=== PATIENT | male | born 1995 | race Caucasian/White ===

== ENCOUNTER 2016-07-28 20:05 | Emergency (ER) | payer OTHER ==
[2016-07-28 20:27] VITALS: BP 137/80; PULSE 67; TEMP 98; BMI 25.4
--- NOTE | 2016-07-28 21:53 | PDOC ---
History of Present Illness - General Chief Complaint: Pain Stated Complaint: BACK PAIN Time Seen by Provider: 07/28/16 20:47 History Source: Patient Exam Limitations: No Limitations - History of Present Illness Initial Comments: 07/28/16 21:47 21yo Male patient presents to ED c/o sudden onset back pain while walking this afternoon. Patient states feeling pain while urinating and vomiting x 1 this evening after eating dinner around 6pm. No OTC medications taken. Associated nausea. Denies hematuria, rectal bleeding, abd pain, CP, diff breathing, rash or any other complaints at this time. Occurred: reports: this afternoon Severity: reports: moderate Pain Location: reports: back Method of Injury: No: unknown, assault, direct blow, fall, motor vehicle crash, other Modifying Factors: worse with: None, cold therapy, immobilization, pain medication, rest, other Past History - Travel Traveled outside of the country in the last 30 days: No Close contact w/someone who was outside of country & ill: No - Past Medical History Allergies/Adverse Reactions: Allergies Allergy/AdvReac Type Severity Reaction Status Date / Time No Known Allergies Allergy Verified 07/28/16 20:25 Home Medications: Ambulatory Orders NK [No Known Home Medication] 07/28/16 GI Disorders: Yes (GERD, COLITIS, CHRONIC DISCOMFORT) Psychiatric Problems: Yes (Anxiety) Suicide Attempt (Hx): No - Immunization History Immunization Up to Date: Yes (FLU 7460-8791) - Psycho/Social/Smoking Cessation Hx Anxiety: No Suicidal Ideation: No Smoking Status: No Smoking History: Never smoked Have you smoked in the past 12 months: No Number of Cigarettes Smoked Daily: 0 Cigars Per Day: 0 Information on smoking cessation initiated: No Hx Alcohol Use: No Drug/Substance Use Hx: No Substance Use Type: None Hx Substance Use Treatment: No Trauma Specific PMHX - Complaint Specific PMHX Arthritis: No Back Injury: No Neck Injury: No Hx Sacro Iliac Joint Dysfunction: No Review of Systems - Review of Systems Able to Perform ROS?: Yes Is the patient limited Kiswahili proficient: No Constitutional: No: Chills, Fever Respiratory: No: Cough, Shortness of Breath, Wheezing Cardiac (ROS): No: Chest Pain, Edema, Lightheadedness, Palpitations, Syncope, Chest Tightness ABD/GI: Yes: Nausea, Vomiting. No: Constipated, Diarrhea, Poor Appetite, Poor Fluid Intake, Rectal Bleeding, Abdominal cramping, Tarry Stools : Yes: Burning, Flank Pain. No: Dysuria, Discharge, Frequency, Hematuria, Pain, Urgency Musculoskeletal: Yes: Back Pain Integumentary: No: Erythema, Rash All Other Systems: Reviewed and Negative *Physical Exam - Vital Signs Last Vital Signs Temp Pulse Resp BP Pulse Ox 98.0 F 67 14 137/80 97 07/28/16 20:25 07/28/16 20:25 07/28/16 20:25 07/28/16 20:25 07/28/16 20:25 - Physical Exam General Appearance: Yes: Nourished, Appropriately Dressed. No: Apparent Distress, Mild Distress, Moderate Distress, Severe Distress Neck: positive: Trachea midline, Supple. negative: Decreased range of motion, Stridor, Lymphadenopathy (R), Lymphadenopathy (L) Respiratory/Chest: positive: Lungs Clear, Normal Breath Sounds. negative: Respiratory Distress, Accessory Muscle Use, Labored Respiration, Rapid RR Cardiovascular: positive: Regular Rhythm, Regular Rate. negative: Edema, JVD, Murmur Gastrointestinal/Abdominal: positive: Normal Bowel Sounds, Soft. negative: Distended, Guarding, Rebound, Tenderness Musculoskeletal: positive: Normal Inspection. negative: CVA Tenderness, Decreased Range of Motion, Vertebral Tenderness Extremity: positive: Normal Capillary Refill, Normal Inspection, Normal Range of Motion Integumentary: positive: Normal Color, Dry, Warm. negative: Erythema, Petechiae , Rash, Swelling Neurologic: positive: quirk sander II-XII NML intact, Fully Oriented, Alert, Normal Mood/ Affect, Normal Response, Motor Strength 5/5 Progress Note - Progress Note Progress Note: UA WNL. Patient reports this pain has been ongoing and is currently under that care of Chiropractor. Refused medications management at this time. *DC/Admit/Observation/Transfer Diagnosis at time of Disposition: Back pain Qualifiers: Back pain location: low back pain Chronicity: acute Back pain laterality: left Sciatica presence: without sciatica Qualified Code(s): M54.5 - Low back pain - Discharge Dispostion Disposition: HOME Condition at time of disposition: Stable Admit: No - Patient Instructions Printed Discharge Instructions: DI for Low Back Pain Additional Instructions: FOLLOW UP WITH YOUR PRIMARY CARE PROVIDER THIS WEEK FOR FURTHER EVALUATION. Print Language: INDONESIAN
[2016-07-28 22:33] LABS: URINE APPEARANCE CLEAR; URINE BILIRUBIN NEGATIVE (NEGATIVE); URINE BLOOD NEGATIVE (NEGATIVE); URINE COLOR COLORLESS; URINE GLUCOSE (UA) NEGATIVE (NEGATIVE); URINE KETONE NEGATIVE (NEGATIVE); URINE LEUK ESTERASE NEGATIVE (NEGATIVE); URINE NITRITE NEGATIVE (NEGATIVE); URINE PROTEIN NEGATIVE (NEGATIVE); URINE UROBILINOGEN NEGATIVE E.U./dl (0.2-1.0)
[2016-07-28] MEDS ORDERED: diazePAM 5 MG TABLET PO ONE (23:03)
[2016-07-28] MEDS ORDERED: IBUPROFEN 600 MG TABLET (FP) PO ONE ×2 (23:03→23:11)
[2016-07-28] MEDS ORDERED: diazePAM 5 MG TABLET ONE (23:12)
== END 2016-07-29 00:17 | disposition home or self-care (01) ==
LOC: JER 20:05
DX: M54.5 Low back pain (principal)
CPT/HCPCS: 81003; 99284-25

== ENCOUNTER 2016-08-07 18:01 | Emergency (ER) | payer OTHER ==
--- NOTE | 2016-08-07 18:07 | PDOC ---
Rapid Medical Evaluation Time Seen by Provider: 08/07/16 18:03 Medical Evaluation: Allergies Allergy/AdvReac Type Severity Reaction Status Date / Time No Known Allergies Allergy Verified 07/28/16 20:25 08/07/16 18:03 21 year old male with a history of GERD presenting with left flank pain since yesterday. Patient is unclear about whether he has had kidney stones before. Mild nausea. Has some "pressure" with urination. No fevers/chills. V/s unremarkable. Left CVA tenderness. No abdominal tenderness. -UA/culture -To Main ED for further evaluation
[2016-08-07 18:28] LABS: URINE APPEARANCE CLEAR; URINE BILIRUBIN NEGATIVE (NEGATIVE); URINE COLOR COLORLESS; URINE GLUCOSE (UA) NEGATIVE (NEGATIVE); URINE KETONE NEGATIVE (NEGATIVE); URINE LEUK ESTERASE NEGATIVE (NEGATIVE); URINE NITRITE NEGATIVE (NEGATIVE); URINE PROTEIN NEGATIVE (NEGATIVE); URINE UROBILINOGEN NEGATIVE E.U./dl (0.2-1.0)
[2016-08-07 18:29] LABS: URINE BLOOD 1+ (NEGATIVE)
[2016-08-07] MEDS ORDERED: KETOROLAC TROMETHAMINE 60 MG/2 ML VIAL IM ONE (19:02)
[2016-08-07] MEDS ORDERED: KETOROLAC TROMETHAMINE 60 MG/2 ML VIAL ONE (19:05)
[2016-08-07 19:57] LABS: URINE RBC 1 /hpf (0-3)
--- NOTE | 2016-08-07 20:24 | PDOC ---
History of Present Illness <Greta Paige - Last Filed: 08/07/16 20:24> - General History Source: Patient Exam Limitations: No Limitations - History of Present Illness Initial Comments: 08/07/16 20:26 Patient is a 21 year old male with significant past medical history of GERD, chronic intermittent abdominal pain and anxiety who presents to the ED with left flank pain and nausea since this week. Patient reports left flank pain sharp in nature and pressure to the left flank when he urinates. Patient denies hematuria. Patient reports colonoscopy and endoscopy did not show anything. He denies nausea, vomiting, diarrhea or constipation. He denies any dysuria, frequency, urgency or hematuria. He denies any heavy lifting. GI - Dr. El PCP - Dr. Kraus <Jazmin Umana - Last Filed: 08/07/16 20:30> - General Chief Complaint: Pain Stated Complaint: PAIN, ACUTE Time Seen by Provider: 08/07/16 18:03 Past History - Past Medical History GI Disorders: Yes (gerd) Psychiatric Problems: Yes (Anxiety) Suicide Attempt (Hx): No - Immunization History Immunization Up to Date: Yes (FLU [id number]) - Psycho/Social/Smoking Cessation Hx Anxiety: No Suicidal Ideation: No Smoking Status: No Smoking History: Never smoked Have you smoked in the past 12 months: No Number of Cigarettes Smoked Daily: 0 Cigars Per Day: 0 Information on smoking cessation initiated: No Hx Alcohol Use: No Drug/Substance Use Hx: No Substance Use Type: None Hx Substance Use Treatment: No <Greta Paige - Last Filed: 08/07/16 20:24> <Jazmin Umana - Last Filed: 08/07/16 20:30> - Past Medical History Allergies/Adverse Reactions: Allergies Allergy/AdvReac Type Severity Reaction Status Date / Time No Known Allergies Allergy Verified 07/28/16 20:25 Home Medications: Ambulatory Orders NK [No Known Home Medication] 07/28/16 Abd/GI Specific PMHX - Complaint Specific PMHX Colitis: No Diverticulitis: No Gall Bladder Disease: No GERD: Yes Hepatitis: No Irritable Bowel Synd (IBS): No Pancreatitis: No GI Ulcer Disease: No <Greta Paige - Last Filed: 08/07/16 20:24> Review of Systems - Review of Systems Able to Perform ROS?: Yes Comments:: 08/07/16 20:26 CONSTITUTIONAL: Absent: fever, chills, diaphoresis, generalized weakness, malaise, loss of appetite HEENT: Absent: rhinorrhea, nasal congestion, throat pain, throat swelling, difficulty swallowing, mouth swelling, ear pain, eye pain, visual Changes CARDIOVASCULAR: Absent: chest pain, syncope, palpitations, irregular heart rate, lightheadedness , peripheral edema RESPIRATORY: Absent: cough, shortness of breath, dyspnea with exertion, orthopnea, wheezing, stridor, hemoptysis GASTROINTESTINAL: Absent: abdominal pain, abdominal distension, nausea, vomiting, diarrhea, constipation, melena, hematochezia GENITOURINARY: Present: flank pain Absent: dysuria, frequency, urgency, hesitancy, hematuria, genital pain MUSCULOSKELETAL: Absent: myalgia, arthralgia, joint swelling SKIN: Absent: rash, itching, pallor HEMATOLOGIC/IMMUNOLOGIC: Absent: easy bleeding, easy bruising, lymphadenopathy, frequent infections ENDOCRINE: Absent: unexplained weight gain, unexplained weight loss, heat intolerance, cold intolerance NEUROLOGIC: Absent: headache, focal weakness or paresthesias, dizziness, unsteady gait, seizure, mental status changes, bladder or bowel incontinence PSYCHIATRIC: Absent: anxiety, depression, suicidal or homicidal ideation, hallucinations. <Jazmin Umana - Last Filed: 08/07/16 20:30> *Physical Exam - Vital Signs Last Vital Signs Temp Pulse Resp BP Pulse Ox 97.6 F 69 18 138/76 99 08/07/16 18:04 08/07/16 18:04 08/07/16 18:04 08/07/16 18:04 08/07/16 18:04 <Greta Paige - Last Filed: 08/07/16 20:24> - Vital Signs Last Vital Signs Temp Pulse Resp BP Pulse Ox 97.6 F 69 18 138/76 99 08/07/16 18:04 08/07/16 18:04 08/07/16 18:04 08/07/16 18:04 08/07/16 18:04 - Physical Exam Comments: 08/07/16 20:26 GENERAL: Well developed, well nourished. Awake and alert. No acute distress. HEENT: Normocephalic, atraumatic. PERRLA, EOMI. No conjunctival pallor. Sclera are non- icteric. Moist mucous membranes. Oropharynx is clear. NECK: Supple. Full ROM. No JVD. Carotid pulses 2+ and symmetric, without bruits. No thyromegaly. No lymphadenopathy. CARDIOVASCULAR: Regular rate and rhythm. No murmurs, rubs, or gallops. Distal pulses are 2+ and symmetric. PULMONARY: No evidence of respiratory distress. Lungs clear to auscultation bilaterally. No wheezing, rales or rhonchi. ABDOMINAL: Soft. Non-tender. Non-distended. No rebound or guarding. No organomegaly. Normoactive bowel sounds. MUSCULOSKELETAL +Mild left flank pain on percussion. Normal range of motion at all joints. No bony deformities or tenderness. EXTREMITIES: No cyanosis. No clubbing. No edema. No calf tenderness. SKIN: Warm and dry. Normal capillary refill. No rashes. No jaundice. NEUROLOGICAL: Alert, awake, appropriate. Cranial nerves 2-12 intact. No deficits to light touch and temperature in face, upper extremities and lower extremities. No motor deficits in the in face, upper extremities and lower extremities. Normoreflexic in the upper and lower extremities. Normal speech. PSYCHIATRIC: Cooperative. Good eye contact. Appropriate mood and affect. <Jazmin Umana - Last Filed: 08/07/16 20:30> ED Treatment Course - ADDITIONAL ORDERS Additional order review: Laboratory Results 08/07/16 18:15 Urine Color Colorless Urine Appearance Clear Urine pH 6.0 Ur Specific [place] 1.002 Urine Protein Negative Urine Glucose (UA) Negative Urine Ketones Negative Urine Blood 1+ H Urine Nitrite Negative Urine Bilirubin Negative Urine Urobilinogen Negative Ur Leukocyte Esterase Negative Urine RBC 1 Urine WBC None Ur Epithelial Cells Rare - RADIOLOGY Radiology Studies Ordered: Category Date Time Status KIDNEY / RENAL US [US] Stat Ultrasound 08/07/16 19:03 Completed - Medications Given in the ED: ED Medications Discontinued Medications Generic Name Dose Route Start Last Admin Trade Name Freq PRN Reason Stop Dose Admin Ketorolac Tromethamine 60 mg 08/07/16 19:02 08/07/16 19:14 Toradol Injection - IM 08/07/16 19:03 60 mg ONCE ONE Administration <Greta Paige - Last Filed: 08/07/16 20:24> - ADDITIONAL ORDERS Additional order review: Laboratory Results 08/07/16 18:15 Urine Color Colorless Urine Appearance Clear Urine pH 6.0 Ur Specific [place] 1.002 Urine Protein Negative Urine Glucose (UA) Negative Urine Ketones Negative Urine Blood 1+ H Urine Nitrite Negative Urine Bilirubin Negative Urine Urobilinogen Negative Ur Leukocyte Esterase Negative Urine RBC 1 Urine WBC None Ur Epithelial Cells Rare - RADIOLOGY Radiology Studies Ordered: 08/07/16 20:29 EXAM: US/KIDNEY / RENAL US Renal ultrasound Clinical information: left flank pain There is no evidence of hydronephrosis. The kidneys appear unremarkable in position, echogenicity, cortical thickness and size. Each kidney measures approximately 10.7 cm in length. There is no obvious mass lesion or calculus. No perirenal fluid collection is identified. The ureters cannot be visualized due to obscuring bowel gas. Impression: Negative exam. No sonographic abnormality is identified. Reported By: Adama Razo MD - Medications Given in the ED: ED Medications Discontinued Medications Generic Name Dose Route Start Last Admin Trade Name Freq PRN Reason Stop Dose Admin Ketorolac Tromethamine 60 mg 08/07/16 19:02 08/07/16 19:14 Toradol Injection - IM 08/07/16 19:03 60 mg ONCE ONE Administration <Jazmin Umana - Last Filed: 08/07/16 20:30> *DC/Admit/Observation/Transfer <Greta Paige - Last Filed: 08/07/16 20:24> - Attestations Scribe Attestion: 08/07/16 20:27 Documentation prepared by DIDI Ward, acting as ophthalmic medical technician for Greta Paige MD. <Jazmin Umana - Last Filed: 08/07/16 20:30> Diagnosis at time of Disposition: Acute flank pain - Discharge Dispostion Disposition: HOME Condition at time of disposition: Stable - Referrals Referrals: Naresh Blum MD [Primary Care Provider] - - Patient Instructions Printed Discharge Instructions: DI for Flank Pain Additional Instructions: please take ibuprofen or tylenol for pain followup with your regular physician
[2016-08-07 20:38] VITALS: BP 107/86; PULSE 74; TEMP 98.7
== END 2016-08-07 20:38 | disposition home or self-care (01) ==
LOC: JER 18:01
PROC: 3E0233Z Introduction of Anti-inflammatory into Muscle, Percutaneous Approach (ICD-10-PCS; principal; 2016-08-07)
DX: R10.32 Left lower quadrant pain (principal); K21.9 Gastro-esophageal reflux disease without esophagitis
CPT/HCPCS: 76775-TC; 81003; 81015; 87086; 99282-25

== ENCOUNTER 2016-08-08 23:46 | Emergency (ER) | payer OTHER ==
[2016-08-09 00:28] VITALS: BP 128/69; PULSE 82; TEMP 97.9; BMI 28.3
--- NOTE | 2016-08-09 00:49 | PDOC ---
History of Present Illness - General History Source: Patient Exam Limitations: No Limitations - History of Present Illness Initial Comments: 08/09/16 00:57 The patient is a 21 year old male with significant past medical history of GERD , chronic intermittent abdominal pain, anxiety, and frequent visits to the ER who presents to the ED with persistent left flank pain. Patient was seen here on 08/07 for left flank pain and nausea, where he had an extensive workup including a renal ultrasound that reveal no acute pathology. He was treated and discharge. Patient returns today for left flank pain. He states upon urinating, he experiences left flank pain and dysuria. No hematuria, urgency, or frequency. The patient denies fever, chills, cough, SOB, chest pain, and palpitations. The patient denies abdominal pain, nausea, vomiting, and diarrhea. Allergies: NKDA Social History: No alcohol, tobacco, or drug use reported. Past Surgical History: None reported PCP: Dr. Naresh Blum GI: Dr. Simon El <Christi Hebert - Last Filed: 08/09/16 00:57> - General History Source: Patient <Jose MariaSalty kilpatrick - Last Filed: 08/09/16 02:35> - General Chief Complaint: Shortness of Breath Stated Complaint: Shortness of Breath Time Seen by Provider: 08/09/16 00:49 Past History <Christi Hebert - Last Filed: 08/09/16 00:57> - Past Medical History GI Disorders: Yes (gerd) Psychiatric Problems: Yes (Anxiety) Suicide Attempt (Hx): No - Immunization History Immunization Up to Date: Yes (FLU 4301-6423) - Psycho/Social/Smoking Cessation Hx Anxiety: No Suicidal Ideation: No Smoking Status: No Smoking History: Never smoked Have you smoked in the past 12 months: No Number of Cigarettes Smoked Daily: 0 Cigars Per Day: 0 Information on smoking cessation initiated: No Hx Alcohol Use: No Drug/Substance Use Hx: No Substance Use Type: None Hx Substance Use Treatment: No <Salty Parada - Last Filed: 08/09/16 02:35> - Past Medical History Allergies/Adverse Reactions: Allergies Allergy/AdvReac Type Severity Reaction Status Date / Time No Known Allergies Allergy Verified 08/09/16 00:20 Home Medications: Ambulatory Orders NK [No Known Home Medication] 07/28/16 Review of Systems - Review of Systems Able to Perform ROS?: Yes Comments:: 08/09/16 00:57 CONSTITUTIONAL: Absent: fever, no chills, no fatigue EYES: Absent: visual changes ENT: Absent: ear pain, no sore throat CARDIOVASCULAR: Absent: chest pain, no palpitations RESPIRATORY: Absent: cough, no SOB GI: Absent: abdominal pain, no nausea, no vomiting, no constipation, no diarrhea GENITOURINARY: +dysuria, left flank pain Absent: no frequency, no hematuria MUSCULOSKELETAL: Absent: no arthralgia, no myalgia SKIN: Absent: rash NEURO: Absent: headache <Christi Hebert - Last Filed: 08/09/16 00:57> *Physical Exam - Vital Signs Last Vital Signs Temp Pulse Resp BP Pulse Ox 97.9 F 82 20 128/69 99 08/09/16 00:20 08/09/16 00:20 08/09/16 00:20 08/09/16 00:20 08/09/16 00:20 - Physical Exam Comments: 08/09/16 00:58 GENERAL: Well-appearing, well-nourished. No apparent distress. HEENT: Normocephalic, atraumatic. PERRL, EOM intact. CARDIOVASCULAR: Normal S1, S2. Regular rate and rhythm. PULMONARY: Clear to auscultation bilaterally. ABDOMEN: Soft, non-distended, non-tender. MUSCULOSKELETAL Normal range of motion at all joints. Mild left CVA tenderness. EXTREMITIES: Normal ROM in all four extremities. No gross deformities. SKIN: Warm, dry. No rash NEUROLOGICAL: No focal neurological deficits. <Christi Hebert - Last Filed: 08/09/16 00:57> - Vital Signs Last Vital Signs Temp Pulse Resp BP Pulse Ox 97.9 F 82 20 128/69 99 08/09/16 00:20 08/09/16 00:20 08/09/16 00:20 08/09/16 00:20 08/09/16 00:20 <Salty Parada - Last Filed: 08/09/16 02:35> Medical Decision Making - Medical Decision Making 08/09/16 02:34 Dr. Parada: The scribe's documentation has been prepared under my direction and personally reviewed by me in its entirery. I confirm that the note above accurately reflects all work, treatment, procedures, and medical decision making performed by me. Pt refused CT scan.. States he feels better. Will discharge <Salty Parada - Last Filed: 08/09/16 02:35> *DC/Admit/Observation/Transfer - Attestations Scribe Attestion: 08/09/16 00:58 Documentation prepared by Christi Hebert, acting as medical device assembler for Salty Parada MD <Christi Hebert - Last Filed: 08/09/16 00:57> - Discharge Dispostion Admit: No <Salty Parada - Last Filed: 08/09/16 02:35> Diagnosis at time of Disposition: Shortness of breath - Discharge Dispostion Disposition: HOME Condition at time of disposition: Stable - Referrals Referrals: Naresh Blum MD [Primary Care Provider] - - Patient Instructions Printed Discharge Instructions: DI for Shortness of Breath
== END 2016-08-09 02:40 | disposition home or self-care (01) ==
LOC: JER 23:46
DX: R06.02 Shortness of breath (principal); F41.9 Anxiety disorder, unspecified; K21.9 Gastro-esophageal reflux disease without esophagitis
CPT/HCPCS: 99281-25

== ENCOUNTER 2016-08-11 23:00 | Emergency (ER) | payer OTHER ==
[2016-08-11 23:17] VITALS: BP 117/71; PULSE 84; TEMP 98.4; BMI 27.2
--- NOTE | 2016-08-12 00:14 | PDOC ---
History of Present Illness - General History Source: Patient Exam Limitations: No Limitations - History of Present Illness Initial Comments: 08/12/16 00:52 The patient is a 21 year old male, with a significant past medical history of GERD, chronic intermittent abdominal pain, anxiety, and frequent visits to the ER, who presents to the emergency department complaining of left flank pain since earlier this evening. Patient was seen here on 08/07 and 08/09 for left flank pain and nausea, during which he had an extensive workup including a renal US which revealed no acute pathology. The patient returns today for left flank pain. The patient describes is pain as a renal colic and as if something were traveling down his back. He states this pain has been going on for about 2 years, but his pain has been worsening. Today, he rates the pain a 9/10. He reports pressure when urinating, but denies hematuria, frequency, or urgency. The patient denies any fever, chills, cough, headache, or dizziness. The patient denies any nausea, vomiting, diarrhea, or constipation. The patient denies any recent travel or sick contacts. Allergies: None reported. Past Surgical History: None reported. Social History: Non-smoker. Denies alcohol or drug use. PCP: Dr. Blum Automobile Contract Clerk: Dr. El <Emma Reed - Last Filed: 08/12/16 00:52> - General History Source: Patient Exam Limitations: No Limitations <Xiomara Julian - Last Filed: 08/14/16 08:39> - General Chief Complaint: Pain, Acute Stated Complaint: FLANK PAIN Time Seen by Provider: 08/12/16 00:03 Past History <Emma Reed - Last Filed: 08/12/16 00:52> - Past Medical History GI Disorders: Yes (gerd) Psychiatric Problems: Yes (Anxiety) Suicide Attempt (Hx): No - Immunization History Immunization Up to Date: Yes (FLU 9003-8399) - Psycho/Social/Smoking Cessation Hx Anxiety: No Suicidal Ideation: No Smoking Status: No Smoking History: Never smoked Have you smoked in the past 12 months: No Number of Cigarettes Smoked Daily: 0 Cigars Per Day: 0 Hx Alcohol Use: No Drug/Substance Use Hx: No Substance Use Type: None Hx Substance Use Treatment: No <Xiomara Julian - Last Filed: 08/14/16 08:39> - Past Medical History Allergies/Adverse Reactions: Allergies Allergy/AdvReac Type Severity Reaction Status Date / Time No Known Allergies Allergy Verified 08/11/16 23:17 Home Medications: Ambulatory Orders Methocarbamol [Robaxin -] 500 mg PO BID PRN #14 tablet 08/12/16 Review of Systems - Review of Systems Able to Perform ROS?: Yes Comments:: 08/12/16 00:53 GENERAL/CONSTITUTIONAL: No: fever, chills, weakness, loss of appetite. HEAD, EYES, EARS, NOSE AND THROAT: No: change in vision, ear pain, discharge, sore throat, throat swelling. CARDIOVASCULAR: No: chest pain, lightheadedness, palpitations, syncope RESPIRATORY: No: cough, shortness of breath, wheezing, hemoptysis, stridor. GASTROINTESTINAL: No: nausea, vomiting, abdominal cramping, diarrhea, rectal bleeding, constipation. GENITOURINARY: Yes: +left flank pain, +renal colic, +pressure when urinating. No : hematuria, frequency, urgency. MUSCULOSKELETAL: No: back pain, neck pain, joint pain, muscle swelling or pain SKIN AND BREASTS: No: lesions, pallor, rash or easy bruising. NEUROLOGIC: No: headache, vertigo, paresthesias, weakness ENDOCRINE: No: unexplained weight gain or loss HEMATOLOGIC/LYMPHATIC: No: anemia, easy bleeding, swelling nodes <Reed,Giomilsy - Last Filed: 08/12/16 00:52> *Physical Exam - Vital Signs Last Vital Signs Temp Pulse Resp BP Pulse Ox 98.4 F 84 18 117/71 98 08/11/16 23:14 08/11/16 23:14 08/11/16 23:14 08/11/16 23:14 08/11/16 23:14 - Physical Exam Comments: 08/12/16 00:53 GENERAL: The patient is in no acute distress. HEAD: Normal with no signs of trauma. EYES: PERRLA, EOMI, sclera anicteric, conjunctiva clear. ENT: Ears normal, nares patent, oropharynx clear without exudates. Moist mucous membranes. NECK: Normal range of motion, supple without lymphadenopathy, JVD, or masses. LUNGS: Breath sounds equal, clear to auscultation bilaterally. No wheezes, and no crackles. HEART: Regular rate and rhythm, normal S1 and S2 without murmur, rub or gallop. ABDOMEN: Soft, nontender, normoactive bowel sounds. No guarding, no rebound. EXTREMITIES: Normal range of motion, no edema. No clubbing or cyanosis. No erythema, or tenderness. NEUROLOGICAL: Cranial nerves II through XII grossly intact. Normal speech. No focal neurological deficits. MUSCULOSKELETAL: Back non-tender to palpation, Mild left CVA tenderness SKIN: Warm, Dry, normal turgor, no rashes or lesions noted. <Emma Reed - Last Filed: 08/12/16 00:52> - Vital Signs Last Vital Signs Temp Pulse Resp BP Pulse Ox 98.4 F 84 18 117/71 98 08/11/16 23:14 08/11/16 23:14 08/11/16 23:14 08/11/16 23:14 08/11/16 23:14 <Xiomara Julian - Last Filed: 08/14/16 08:39> ED Treatment Course - ADDITIONAL ORDERS Additional order review: Laboratory Results 08/12/16 00:25 Urine Color Colorless Urine Appearance Clear Urine pH 7.0 Ur Specific Spring 1.002 Urine Protein Negative Urine Glucose (UA) Negative Urine Ketones Negative Urine Blood Negative Urine Nitrite Negative Urine Bilirubin Negative Urine Urobilinogen Negative Ur Leukocyte Esterase Negative <Emma Reed - Last Filed: 08/12/16 00:52> Medical Decision Making - Medical Decision Making 08/12/16 00:14 A portion of this note was documented by scribe services under my direction. I have reviewed the details of the note, within reason, and agree with the documentation with the following case summary and management plan written by me. Nursing documentation reviewed and incorporated into medical decision making 08/12/16 00:54 Baldemar is a 21 yo M with a history of anxiety multiple emergency room visits secondary to chronic abdominal/flank pain Pt specifically states that he "Feels like he is passing something", like I have "Renal colic" Pt reports pain in the left flank Per chart review, he has previously been seen by urology, gastroenterology, nephrology, neurology and has not gotten a diagnosis Pt denies hematuria, dysuria Pt denies trauma 08/12/16 01:[address] here was 2 years ago (is it possible that there is a stone that was missed on his US because there was no significant hydro) Will plan to do UA and Spiral CT Will give Toradol Pt will be discharged to home I have reviewed this patient's imaging studies with him He believes he possibly passed a stone already I have explained that his Urinalysis is normal I have asked this patient to follow up with his PMD in 2 days He has previously seen a Urologist, I have asked him to follow up with Uro Finally, pt appears anxious about his pain I have recommended that he contact Dr. Kraus for a referral to psychologist /psychiatrist... Clinical impression: Left flank pain <Xiomara Julian - Last Filed: 08/14/16 08:39> *DC/Admit/Observation/Transfer - Attestations Scribe Attestion: 08/12/16 00:53 Documentation prepared by Emma Reed, acting as medical secretary teacher for Xiomara Julian MD. <Emma Reed - Last Filed: 08/12/16 00:52> - Discharge Dispostion Admit: No <Xiomara Julian - Last Filed: 08/14/16 08:39> Diagnosis at time of Disposition: Abdominal wall pain in left flank - Discharge Dispostion Disposition: HOME Condition at time of disposition: Improved - Prescriptions Prescriptions: Methocarbamol [Robaxin -] 500 mg PO BID PRN #14 tablet PRN Reason: flank pain - Referrals Referrals: Naresh Blum MD [Primary Care Provider] - - Patient Instructions Printed Discharge Instructions: DI for Flank Pain Additional Instructions: Return to the emergency department immediately with ANY new, persistent or worsening symptoms. Continue any medications as previously prescribed by your physician. You should follow up with your primary doctor as soon as possible regarding today's emergency department visit. . Please make sure your doctor reviews the results of your emergency evaluation. Thank you for coming to the Emergency Department today for your care. It was a pleasure to see you today. Please note that your evaluation is INCOMPLETE until you follow-up with your doctor.
[2016-08-12 00:37] LABS: URINE APPEARANCE CLEAR; URINE BILIRUBIN NEGATIVE (NEGATIVE); URINE BLOOD NEGATIVE (NEGATIVE); URINE COLOR COLORLESS; URINE GLUCOSE (UA) NEGATIVE (NEGATIVE); URINE KETONE NEGATIVE (NEGATIVE); URINE LEUK ESTERASE NEGATIVE (NEGATIVE); URINE NITRITE NEGATIVE (NEGATIVE); URINE PROTEIN NEGATIVE (NEGATIVE); URINE UROBILINOGEN NEGATIVE E.U./dl (0.2-1.0)
[2016-08-12] MEDS ORDERED: KETOROLAC TROMETHAMINE 30 MG/1 ML VIAL IM ONE (00:54)
[2016-08-12] MEDS ORDERED: KETOROLAC TROMETHAMINE 60 MG/2 ML VIAL ONE (01:13)
== END 2016-08-12 01:58 | disposition home or self-care (01) ==
LOC: JER 23:00
PROC: 3E0233Z Introduction of Anti-inflammatory into Muscle, Percutaneous Approach (ICD-10-PCS; principal; 2016-08-11)
DX: R10.32 Left lower quadrant pain (principal)
CPT/HCPCS: 74176; 81003; 87086; 99283-25

== ENCOUNTER → 2016-08-14 | Emergency (ER) | payer OTHER ==
[~2016-08-14] MED LIST: ACETAMINOPHEN 325 MG TABLET (FP) ONE; IBUPROFEN 600 MG TABLET (FP) PO ONE; MAG HYDROX/AL HYDROX/SIMETH 30 ML UNIT-DOSE CUP ONE; METHOCARBAMOL 500 MG TABLET ONE; METHOCARBAMOL 500 MG TABLET PO ONE; RANITIDINE HCL 150 MG TABLET (FP) ONE
[2016-08-14 01:16] VITALS: BP 120/80; PULSE 78; TEMP 98.4; BMI 27.8
--- NOTE | 2016-08-14 01:26 | PDOC ---
History of Present Illness - General History Source: Patient Exam Limitations: No Limitations - History of Present Illness Initial Comments: 08/14/16 01:36 Patient is a 21 year old male with a significant past medical history of GERD, chronic intermittent abdominal pain, anxiety, and frequent visits to the ER for same complaint who presents to the ED with flank pain and dysuria. Patient notes that his left flank radiates to his back. Patient was seen on 08/07, 08/08, 08/11 with the same complaint. Patient had abdominal CT on 08/11 visit that was negative. Also the bloodwork was within normal limits during all of the visits. Patient had an US on 08/07 that was within normal limits. Patient had a physical with Dr. Blum who referred him to urologist follow up. He denies nausea, vomiting, diarrhea or constipation. He denies any dysuria, frequency, urgency or hematuria. He denies any heavy lifting. Allergies: None reported. Past Surgical History: None reported. Social History: Non-smoker. Denies alcohol or drug use. PCP: Dr. Blum Oracle Applications Developer: Dr. El <Jazmin Umana - Last Filed: 08/14/16 01:35> <Greta Paige - Last Filed: 08/14/16 01:47> - General Chief Complaint: Pain, Acute Stated Complaint: ABD PAIN Time Seen by Provider: 08/14/16 01:19 Past History <Jazmin Umana - Last Filed: 08/14/16 01:35> - Past Medical History GI Disorders: Yes (gerd) Psychiatric Problems: Yes (Anxiety) Suicide Attempt (Hx): No - Immunization History Immunization Up to Date: Yes (FLU 2812-4554) - Psycho/Social/Smoking Cessation Hx Anxiety: No Suicidal Ideation: No Smoking Status: No Smoking History: Never smoked Have you smoked in the past 12 months: No Number of Cigarettes Smoked Daily: 0 Cigars Per Day: 0 Hx Alcohol Use: No Drug/Substance Use Hx: No Substance Use Type: None Hx Substance Use Treatment: No <Greta Paige - Last Filed: 08/14/16 01:47> - Past Medical History Allergies/Adverse Reactions: Allergies Allergy/AdvReac Type Severity Reaction Status Date / Time No Known Allergies Allergy Verified 08/11/16 23:17 Home Medications: Ambulatory Orders Methocarbamol [Robaxin -] 500 mg PO BID PRN #14 tablet 08/12/16 Abd/GI Specific PMHX - Complaint Specific PMHX Colitis: No Diverticulitis: No Gall Bladder Disease: No GERD: Yes Hepatitis: No Irritable Bowel Synd (IBS): No Pancreatitis: No GI Ulcer Disease: No <RoyalGreta Kristen - Last Filed: 08/14/16 01:47> Review of Systems - Review of Systems Able to Perform ROS?: Yes Comments:: 08/14/16 01:36 CONSTITUTIONAL: Absent: fever, chills, diaphoresis, generalized weakness, malaise, loss of appetite HEENT: Absent: rhinorrhea, nasal congestion, throat pain, throat swelling, difficulty swallowing, mouth swelling, ear pain, eye pain, visual Changes CARDIOVASCULAR: Absent: chest pain, syncope, palpitations, irregular heart rate, lightheadedness , peripheral edema RESPIRATORY: Absent: cough, shortness of breath, dyspnea with exertion, orthopnea, wheezing, stridor, hemoptysis GASTROINTESTINAL: Absent: abdominal pain, abdominal distension, nausea, vomiting, diarrhea, constipation, melena, hematochezia GENITOURINARY: Present: flank pain, dysuria Absent: frequency, urgency, hesitancy, hematuria, genital pain MUSCULOSKELETAL: Absent: myalgia, arthralgia, joint swelling SKIN: Absent: rash, itching, pallor HEMATOLOGIC/IMMUNOLOGIC: Absent: easy bleeding, easy bruising, lymphadenopathy, frequent infections ENDOCRINE: Absent: unexplained weight gain, unexplained weight loss, heat intolerance, cold intolerance NEUROLOGIC: Absent: headache, focal weakness or paresthesias, dizziness, unsteady gait, seizure, mental status changes, bladder or bowel incontinence PSYCHIATRIC: Absent: anxiety, depression, suicidal or homicidal ideation, hallucinations. <Jazmin Umana - Last Filed: 08/14/16 01:35> *Physical Exam - Vital Signs Last Vital Signs Temp Pulse Resp BP Pulse Ox 98.4 F 78 16 120/80 98 08/14/16 01:15 08/14/16 01:15 08/14/16 01:15 08/14/16 01:15 08/14/16 01:15 - Physical Exam Comments: 08/14/16 01:37 GENERAL: Well developed, well nourished. Awake and alert. No acute distress. HEENT: Normocephalic, atraumatic. PERRLA, EOMI. No conjunctival pallor. Sclera are non- icteric. Moist mucous membranes. Oropharynx is clear. NECK: Supple. Full ROM. No JVD. Carotid pulses 2+ and symmetric, without bruits. No thyromegaly. No lymphadenopathy. CARDIOVASCULAR: Regular rate and rhythm. No murmurs, rubs, or gallops. Distal pulses are 2+ and symmetric. PULMONARY: No evidence of respiratory distress. Lungs clear to auscultation bilaterally. No wheezing, rales or rhonchi. ABDOMINAL: Soft. Non-tender. Non-distended. No rebound or guarding. No organomegaly. Normoactive bowel sounds. MUSCULOSKELETAL Normal range of motion at all joints. No bony deformities or tenderness. No CVA tenderness. EXTREMITIES: No cyanosis. No clubbing. No edema. No calf tenderness. SKIN: Warm and dry. Normal capillary refill. No rashes. No jaundice. NEUROLOGICAL: Alert, awake, appropriate. Cranial nerves 2-12 intact. No deficits to light touch and temperature in face, upper extremities and lower extremities. No motor deficits in the in face, upper extremities and lower extremities. Normoreflexic in the upper and lower extremities. Normal speech. Toes are down-going bilaterally. Gait is normal without ataxia. PSYCHIATRIC: Cooperative. Good eye contact. Appropriate mood and affect. <Jazmin Umana - Last Filed: 08/14/16 01:35> - Vital Signs Last Vital Signs Temp Pulse Resp BP Pulse Ox 98.4 F 78 16 120/80 98 08/14/16 01:15 08/14/16 01:15 08/14/16 01:15 08/14/16 01:15 08/14/16 01:15 <Greta Paige - Last Filed: 08/14/16 01:47> *DC/Admit/Observation/Transfer - Attestations Scribe Attestion: 08/14/16 01:38 Documentation prepared by DIDI Ward, acting as medical billing assistant for Greta Paige MD. <Jazmin Umana - Last Filed: 08/14/16 01:35> <Greta Paige - Last Filed: 08/14/16 01:47> Diagnosis at time of Disposition: Abdominal wall pain in left flank - Discharge Dispostion Disposition: HOME Condition at time of disposition: Stable - Referrals Referrals: Naresh Blum MD [Primary Care Provider] - - Patient Instructions Printed Discharge Instructions: DI for Musculoskeletal Pain, DI for Flank Pain Additional Instructions: please take motrin or aleve for pain followup with your physician
== END | disposition home or self-care (01) ==
LOC: JER 00:08
DX: R10.32 Left lower quadrant pain (principal); K21.9 Gastro-esophageal reflux disease without esophagitis; F41.9 Anxiety disorder, unspecified
CPT/HCPCS: 99281-25

== ENCOUNTER 2016-08-18 21:03 | Emergency (ER) | payer OTHER ==
[2016-08-18 21:16] VITALS: PULSE 111; BMI 27.1
--- NOTE | 2016-08-18 21:42 | PDOC ---
[id number] No Limitations - History of Present Illness Initial Comments: 08/18/16 22:11 Patient is a 21 year old male with a significant past medical history of GERD, anxiety, who presents to the ED with gas since this evening. Patient reports eating carrots, eggs, and beans earlier in the day. Denies fever, chills, nausea , vomiting, diarrhea, constipation. His last BM was yesterday. Patient also complains of a pinch in his lower back. He states that he exercises at the gym regularly. 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 Past Surgical History: None reported. Social History: Non-smoker. Denies alcohol or drug use. PCP: Dr. Blum Applications Architect: Dr. El <Gold Desai - Last Filed: 08/18/16 22:11> <Marleni Cervantes - Last Filed: 08/25/16 20:49> - General Chief Complaint: Back Pain Stated Complaint: BAD BACK PAIN Time Seen by Provider: 08/18/16 21:41 Past History <Gold Desai - Last Filed: 08/18/16 22:11> - Past Medical History GI Disorders: Yes (gerd) Psychiatric Problems: Yes (Anxiety) Suicide Attempt (Hx): No - Immunization History Immunization Up to Date: Yes (FLU 8899-2334) - Psycho/Social/Smoking Cessation Hx Anxiety: No Suicidal Ideation: No Smoking Status: No Smoking History: Never smoked Have you smoked in the past 12 months: No Number of Cigarettes Smoked Daily: 0 Cigars Per Day: 0 Hx Alcohol Use: No Drug/Substance Use Hx: No Substance Use Type: None Hx Substance Use Treatment: No <Marleni Cervantes - Last Filed: 08/25/16 20:49> - Past Medical History Allergies/Adverse Reactions: Allergies Allergy/AdvReac Type Severity Reaction Status Date / Time No Known Allergies Allergy Verified 08/18/16 21:16 Home Medications: Ambulatory Orders NK [No Known Home Medication] 08/18/16 Review of Systems - Review of Systems Able to Perform ROS?: Yes Comments:: 08/18/16 22:11 GENERAL/CONSTITUTIONAL: No fever or chills. No weakness. HEAD, EYES, EARS, NOSE AND THROAT: No change in vision. No ear pain or discharge. No sore throat. CARDIOVASCULAR: No chest pain or shortness of breath. RESPIRATORY: No cough, wheezing, or hemoptysis. GASTROINTESTINAL: + gassy. No nausea, vomiting, diarrhea or constipation. GENITOURINARY: No dysuria, frequency, or change in urination. MUSCULOSKELETAL: + lower back pain. No joint or muscle swelling or pain. No neck pain. SKIN: No rash NEUROLOGIC: No headache, vertigo, loss of consciousness, or change in strength/ sensation. ENDOCRINE: No increased thirst. No abnormal weight change. HEMATOLOGIC/LYMPHATIC: No anemia, easy bleeding, or history of blood clots. ALLERGIC/IMMUNOLOGIC: No hives or skin allergy. <Gold Desai - Last Filed: 08/18/16 22:11> *Physical Exam - Vital Signs Last Vital Signs Temp Pulse Resp BP Pulse Ox 97.4 F L 111 H 20 147/91 99 08/18/16 21:13 08/18/16 21:13 08/18/16 21:13 08/18/16 21:13 08/18/16 21:13 - Physical Exam Comments: 08/18/16 22:12 GENERAL: Awake, alert, and fully oriented, in no acute distress HEAD: No signs of trauma EYES: PERRLA, EOMI, sclera anicteric, conjunctiva clear ENT: Auricles normal inspection, hearing grossly normal, nares patent, oropharynx clear without exudates. Moist mucosa NECK: Normal ROM, supple, no lymphadenopathy, JVD, or masses LUNGS: Breath sounds equal, clear to auscultation bilaterally. No wheezes, and no crackles HEART: Regular rate and rhythm, normal S1 and S2, no murmurs, rubs or gallops ABDOMEN: Soft, nontender, normoactive bowel sounds. No guarding, no rebound. No masses EXTREMITIES: Normal range of motion, no edema. No clubbing or cyanosis. No cords, erythema, or tenderness NEUROLOGICAL: Cranial nerves II through XII grossly intact. Normal speech, normal gait SKIN: Warm, Dry, normal turgor, no rashes or lesions noted. <Gold Desai - Last Filed: 08/18/16 22:11> - Vital Signs Last Vital Signs Temp Pulse Resp BP Pulse Ox 97.4 F L 111 H 20 147/91 99 08/18/16 21:13 08/18/16 21:13 08/18/16 21:13 08/18/16 21:13 08/18/16 21:13 <Marleni Cervantes - Last Filed: 08/25/16 20:49> ED Treatment Course - LABORATORY CBC & Chemistry Diagram: 08/18/16 22:10 08/18/16 22:10 <Marleni Cervantes - Last Filed: 08/25/16 20:49> Medical Decision Making - Medical Decision Making 08/25/16 20:46 Pt comes with chest pain/epigastric pain; GERD pain. He has no cardiac risk factors. I will not check cardiac enyzmes. Pt's labs are normal. He also complains of back pain. T spine imaging is normal; Pt treated with pain meds. Stable for discharge home. <Marleni Cervantes - Last Filed: 08/25/16 20:49> *DC/Admit/Observation/Transfer - Attestations Scribe Attestion: 08/18/16 22:13 Documentation prepared by Gold Desai, acting as medical education specialist for Marleni Cervantes MD. <oGld Desai - Last Filed: 08/18/16 22:11> - Discharge Dispostion Admit: No <Marleni Cervantes - Last Filed: 08/25/16 20:49> Diagnosis at time of Disposition: Muscular chest pain - Discharge Dispostion Disposition: HOME Condition at time of disposition: Stable - Referrals Referrals: Naresh Blum MD [Primary Care Provider] - - Patient Instructions Printed Discharge Instructions: DI for Back Strain or Sprain - Post Discharge Activity Work/School Note: Back to Work
[2016-08-18] MEDS ORDERED: MAG HYDROX/AL HYDROX/SIMETH 30 ML UNIT-DOSE CUP PO ONE (22:05)
[2016-08-18] MEDS ORDERED: KETOROLAC TROMETHAMINE 60 MG/2 ML VIAL IM ONE (22:05)
[2016-08-18 22:21] LABS: BASOPHIL 0.5 % (0-2.0); EOSINOPHIL 3.9 % (0-4.5); MCH 28.8 pg (25.7-33.7); MEAN CELL VOLUME 82.3 fl (80-96); MEAN PLT VOLUME 10.2 fl (7.5-11.1); NEUTROPHILS 66.7 % (42.8-82.8); PLATELET COUNT 172 K/MM3 (134-434); RDW 13.7 % (11.9-15.9); WHITE BLOOD COUNT 5.7 K/mm3 (4.0-10.0)
[2016-08-18 22:51] LABS: ALBUMIN 4.2 g/dl (3.4-5.0); ALK PHOS 101 U/L (45-117); ANION GAP 9 (8-16); BILIRUBIN,TOTAL 0.5 mg/dL (0.2-1.0); CALCIUM 8.9 mg/dL (8.5-10.1); CO2 28 mmol/L (21-32); CREATININE 0.8 mg/dL (0.7-1.3); GLUCOSE,RANDOM 101 mg/dL (74-106); SGOT/AST 12 U/L (15-37); SGPT/ALT 19 U/L (12-78); TOT PROT 7.6 g/dl (6.4-8.2)
[2016-08-18] MEDS ORDERED: KETOROLAC TROMETHAMINE 60 MG/2 ML VIAL ONE (23:11)
[2016-08-18] MEDS ORDERED: MAG HYDROX/AL HYDROX/SIMETH 30 ML UNIT-DOSE CUP ONE (23:12)
[2016-08-18 23:27] VITALS: BP 140/88; TEMP 97.5
== END 2016-08-18 23:29 | disposition home or self-care (01) ==
LOC: JER 21:03
PROC: 3E0233Z Introduction of Anti-inflammatory into Muscle, Percutaneous Approach (ICD-10-PCS; principal; 2016-08-18)
DX: R07.9 Chest pain, unspecified (principal)
CPT/HCPCS: 36415; 72070-TC; 80053; 85025; 99281-25

== ENCOUNTER 2016-08-30 21:08 | Emergency (ER) | payer OTHER ==
[2016-08-30 21:18] VITALS: BP 131/71; PULSE 80; TEMP 98.7; BMI 23.8
[2016-08-30] MEDS ORDERED: KETOROLAC TROMETHAMINE 60 MG/2 ML VIAL ONE (22:37)
[2016-08-30] MEDS: KETOROLAC TROMETHAMINE 60 MG/2 ML VIAL IM ONE (22:47)
--- NOTE | 2016-08-30 22:50 | PDOC ---
History of Present Illness - General Chief Complaint: Back Pain Stated Complaint: LOWER BACK PAIN Time Seen by Provider: 08/30/16 22:21 History Source: Patient Exam Limitations: No Limitations - History of Present Illness Initial Comments: CHIEF COMPLAINT: 21 y/o afebrile male c/o left sided low back pain that started today while stretching. HISTORY OF PRESENT ILLNESS: He states he was stretching before a run and felt a twinge in his left low back. He states it's been hurting ever since and feels like a "pulling" with certain movements. He denies fall, midline low back pain, saddle anesthesia, bowel/bladder incontinence, numbness/tingling in lower extremities. Vital signs on arrival are within normal limits. REVIEW OF SYSTEMS: GENERAL/CONSTITUTIONAL: No fever/chills. No weakness. No weight change. HEAD, EYES, EARS, NOSE AND THROAT: No change in vision. No ear pain or discharge. No sore throat. MUSCULOSKELETAL: No joint or muscle swelling or pain. No neck. +left low back pain SKIN: No rash or easy bruising. NEUROLOGIC: No headache, vertigo, loss of consciousness, or loss of sensation. PHYSICAL EXAM: GENERAL: The patient is awake, alert, and fully oriented, in no acute distress. he is well appearing and ambulatory. HEAD: Normal with no signs of trauma. BACK: No midline lumbar spine TTP or step offs. TTP of left lumbar paravertebral muscles at L2-L3. Reproduction of pain with lateral movement of lumbar spine to the right. EXTREMITIES: Normal range of motion, no edema. NEUROLOGICAL: Normal speech, normal gait. CN II-XII grossly intact. No saddle anesthesia. PSYCH: Normal mood, normal affect. SKIN: Warm, dry, normal turgor, no rashes or lesions noted. Past History - Past Medical History Allergies/Adverse Reactions: Allergies Allergy/AdvReac Type Severity Reaction Status Date / Time No Known Allergies Allergy Verified 08/30/16 21:12 Home Medications: Ambulatory Orders NK [No Known Home Medication] 08/18/16 GI Disorders: Yes (gerd) Psychiatric Problems: Yes (Anxiety) Suicide Attempt (Hx): No - Immunization History Immunization Up to Date: Yes (FLU 1508-6660) - Psycho/Social/Smoking Cessation Hx Anxiety: No Suicidal Ideation: No Smoking Status: No Smoking History: Never smoked Have you smoked in the past 12 months: No Number of Cigarettes Smoked Daily: 0 Cigars Per Day: 0 Information on smoking cessation initiated: No Hx Alcohol Use: No Drug/Substance Use Hx: No Substance Use Type: None Hx Substance Use Treatment: No Trauma Specific PMHX - Complaint Specific PMHX Arthritis: No Back Injury: No Neck Injury: No Hx Sacro Iliac Joint Dysfunction: No *Physical Exam - Vital Signs Last Vital Signs Temp Pulse Resp BP Pulse Ox 98.7 F 80 14 131/71 97 08/30/16 21:13 08/30/16 21:13 08/30/16 21:13 08/30/16 21:13 08/30/16 21:13 Medical Decision Making - Medical Decision Making A/P: 21 y/o afebrile male with right low back strain. He has not taken any pain medication at home. Plan is to give IM toradol and discharge to home. Suggested he stretch his back multiple times per day and take 600mg of Motrin every 6 hours for pain. Pt also instructed to apply heating pad to the affected area, f/u with his PCP and return to the ER with any worsening or concerning symptoms. The patient verbalizes understanding of all instructions, has no further questions and is awaiting discharge. *DC/Admit/Observation/Transfer Diagnosis at time of Disposition: Low back strain Qualifiers: Encounter type: initial encounter Qualified Code(s): S39.012A - Strain of muscle, fascia and tendon of lower back, initial encounter - Referrals Referrals: Naresh Blum MD [Primary Care Provider] - - Patient Instructions Printed Discharge Instructions: DI for Low Back Pain Additional Instructions: Discharge Instructions: -Take 600mg of Motrin with food for pain every 6 hours -Stretch your back multiple times per day -Apply heat to the affected area -Follow up with Dr. Blum within 1 week -Return to the ER wtih any worsening or concerning symptoms.
== END 2016-08-30 22:51 | disposition home or self-care (01) ==
LOC: JERFT 21:08
PROC: 3E0233Z Introduction of Anti-inflammatory into Muscle, Percutaneous Approach (ICD-10-PCS; principal; 2016-08-30)
DX: S39.012A Strain of muscle, fascia and tendon of lower back, initial encounter (principal); X50.0XXA Overexertion from strenuous movement or load, initial encounter; Y93.89 Activity, other specified; Y92.89 Other specified places as the place of occurrence of the external cause
CPT/HCPCS: 99281-25

== ENCOUNTER 2016-08-31 14:00 | Emergency (ER) | payer OTHER ==
[2016-08-31 14:09] VITALS: BP 127/63; PULSE 82; TEMP 98.3; BMI 24.2
--- NOTE | 2016-08-31 14:58 | PDOC ---
History of Present Illness - General Chief Complaint: Back Pain Stated Complaint: LOWER BACK PAIN Time Seen by Provider: 08/31/16 14:48 History Source: Patient Exam Limitations: No Limitations - History of Present Illness Initial Comments: 08/31/16 15:08 My Chief Complaint: left lower back pain History of Present Illness: Pt. is a 21 year old male with history of GERD here today complaining of left lower muscle pain with spasm of muscle worse today. Pt. was here yesterday was told to take ibuprofen as needed for back pain however patient did not take any. Patient also reports that he's had intermittent lower back pain for one month and had seen his primary care provider Dr. Kraus and has an MRI of lumbar spine ordered for later today. 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 He reports that he does not turn his body in the direction that he is picking up a book. The midline vertebral pain radiation of pain down the legs or numbness of groin or legs. The pain currently as a 6 out of 10 with muscle tightness of left lower back. Occurred: reports: yesterday Severity: reports: moderate Pain Location: reports: back (left lower back pain with muscle spasm ) Method of Injury: Yes: unknown Modifying Factors: improves with: immobilization Loss of Consciousness: no loss of consciousness Associated Symptoms (Fall): muscle spasms (left lumbar paraspinal ) Past History - Past Medical History Allergies/Adverse Reactions: Allergies Allergy/AdvReac Type Severity Reaction Status Date / Time No Known Allergies Allergy Verified 08/31/16 14:06 Home Medications: Ambulatory Orders Cyclobenzaprine HCl [Flexeril 10 mg] 10 mg PO Q8H PRN #20 tablet 08/31/16 GI Disorders: Yes (gerd) Psychiatric Problems: Yes (Anxiety) Suicide Attempt (Hx): No - Immunization History Immunization Up to Date: Yes (FLU 2364-7673) - Psycho/Social/Smoking Cessation Hx Anxiety: No Suicidal Ideation: No Smoking Status: No Smoking History: Never smoked Have you smoked in the past 12 months: No Number of Cigarettes Smoked Daily: 0 Cigars Per Day: 0 Information on smoking cessation initiated: No Hx Alcohol Use: No Drug/Substance Use Hx: No Substance Use Type: None Hx Substance Use Treatment: No Trauma Specific PMHX - Complaint Specific PMHX Arthritis: No Back Injury: No Neck Injury: No Hx Sacro Iliac Joint Dysfunction: No Review of Systems - Review of Systems Able to Perform ROS?: Yes Constitutional: No: Symptoms Reported HEENTM: No: Symptoms Reported Respiratory: No: Symptoms reported Cardiac (ROS): No: Symptoms Reported ABD/GI: No: Symptoms Reported : No: Symptoms Reported Musculoskeletal: Yes: Muscle Pain (left lumbar paraspinal muscle pain with spasm of muscle ) Integumentary: No: Symptoms Reported Neurological: No: Symptoms reported *Physical Exam - Vital Signs Last Vital Signs Temp Pulse Resp BP Pulse Ox 98.3 F 82 17 127/63 98 08/31/16 14:06 08/31/16 14:06 08/31/16 14:06 08/31/16 14:06 08/31/16 14:06 - Physical Exam General Appearance: Yes: Appropriately Dressed Respiratory/Chest: positive: Lungs Clear, Normal Breath Sounds. negative: Chest Tender, Respiratory Distress Cardiovascular: positive: Regular Rhythm, Regular Rate, S1, S2 Musculoskeletal: positive: Normal Inspection, Muscle Spasm (left paraspinal lumbar ). negative: CVA Tenderness, CVA Tenderness (R), CVA Tenderness (L), Decreased Range of Motion, Vertebral Tenderness Extremity: positive: Normal Capillary Refill, Normal Inspection, Normal Range of Motion Integumentary: positive: Normal Color Neurologic: positive: Alert, Normal Response, Motor Strength 5/5 (b/l legs ), Respond to painful stimul (b/l lower extremities ), Responsive, Other (negative SLR b//l ). negative: Numbness, Sensory Deficit (legs b/l ) Deep Tendon Reflexes: Ankle (L): 3+, Ankle (R): 3+, Knee (L): 3+, Knee (R): 3+ Medical Decision Making - Medical Decision Making 08/31/16 15:16 Pt. is a 21 year old male with history of GERD here today complaining of left lower muscle pain with spasm of muscle worse today. Pt. was here yesterday was told to take ibuprofen as needed for back pain however patient did not take any. Patient also reports that he's had intermittent lower back pain for one month and had seen his primary care provider Dr. Kraus and has an MRI of lumbar spine ordered for later today. 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 He reports that he does not turn his body in the direction that he is picking up a book. The midline vertebral pain radiation of pain down the legs or numbness of groin or legs. The pain currently as a 6 out of 10 with muscle tightness of left lower back. Left lumbar paraspinal muscles tenderness with muscle spasm PLAN: ibuprofen 600 mg po now flexeril 10 mg po now than every 8 hrs prn muscle spasm # 20 follow up with orthopedist if back pain persists *DC/Admit/Observation/Transfer Diagnosis at time of Disposition: Low back pain Qualifiers: Chronicity: acute Back pain laterality: left Sciatica presence: without sciatica Qualified Code(s): M54.5 - Low back pain - Discharge Dispostion Disposition: HOME Condition at time of disposition: Stable - Prescriptions Prescriptions: Cyclobenzaprine HCl [Flexeril 10 mg] 10 mg PO Q8H PRN #20 tablet PRN Reason: Muscle Spasms - Referrals Referrals: Naresh Blum MD [Primary Care Provider] - Baldemar Cavanaugh MD [Staff Physician] - - Patient Instructions Additional Instructions: Follow up with orthopedist as soon as possible REturn to Emergency room if pain worsens or any numbness of groin or legs take Ibuprofen as needed as directed by screw eye assembler for pain Any strenuous activities or sports including riding until back issues have been resolved patient voiced understanding of discharge instructions and all questions were answered
[2016-08-31] MEDS ORDERED: IBUPROFEN 600 MG TABLET (FP) PO ONE ×2 (15:03→15:14)
[2016-08-31] MEDS ORDERED: CYCLOBENZAPRINE HCL 10 MG TABLET (FP) PO ONE (15:03)
[2016-08-31] MEDS ORDERED: CYCLOBENZAPRINE HCL 10 MG TABLET (FP) ONE (15:14)
== END 2016-08-31 15:36 | disposition home or self-care (01) ==
LOC: JERFT 14:00
DX: M54.5 Low back pain (principal); M62.830 Muscle spasm of back; K21.9 Gastro-esophageal reflux disease without esophagitis; F41.9 Anxiety disorder, unspecified
CPT/HCPCS: 99281-25

== ENCOUNTER 2016-09-11 17:02 | Emergency (ER) | payer OTHER ==
[2016-09-11 17:07] VITALS: TEMP 98.1; BMI 23.3
--- NOTE | 2016-09-11 17:45 | PDOC ---
History of Present Illness <Greta Paige - Last Filed: 09/11/16 18:27> - History of Present Illness Initial Comments: 09/11/16 19:16 Patient is a 21 year old male with significant medical hx of GERD, chronic intermittent abdominal pain, anxiety, and frequent visits to the ER, who is presenting to the ED with left sided abdominal pain since this morning. The patient describes his pain as a pressure with radiation around to his back. He also endorses some nausea but denies any vomiting, diarrhea, fever, or chills. Allergies: NKDA Surgical Hx: None reported. Social Hx: Non-smoker. Denies alcohol or drug use. PMD: Naresh Blum MD Rn Otolaryngology: Simon El MD <Suzy aRmos - Last Filed: 09/11/16 19:19> - General Chief Complaint: Pain Stated Complaint: ABD PAIN Time Seen by Provider: 09/11/16 17:41 Past History - Past Medical History GI Disorders: Yes (gerd) Psychiatric Problems: Yes (Anxiety) Suicide Attempt (Hx): No - Immunization History Immunization Up to Date: Yes (FLU [id number]) - Psycho/Social/Smoking Cessation Hx Anxiety: No Suicidal Ideation: No Smoking Status: No Smoking History: Never smoked Have you smoked in the past 12 months: No Number of Cigarettes Smoked Daily: 0 Cigars Per Day: 0 Information on smoking cessation initiated: No Hx Alcohol Use: No Drug/Substance Use Hx: No Substance Use Type: None Hx Substance Use Treatment: No <Greta Paige - Last Filed: 09/11/16 18:27> <Suzy Ramos - Last Filed: 09/11/16 19:19> - Past Medical History Allergies/Adverse Reactions: Allergies Allergy/AdvReac Type Severity Reaction Status Date / Time No Known Allergies Allergy Verified 09/11/16 17:07 Home Medications: Ambulatory Orders NK [No Known Home Medication] 09/11/16 Abd/GI Specific PMHX - Complaint Specific PMHX Colitis: No Diverticulitis: No Gall Bladder Disease: No GERD: Yes Hepatitis: No Irritable Bowel Synd (IBS): No Pancreatitis: No GI Ulcer Disease: No <Greta Paige - Last Filed: 09/11/16 18:27> Review of Systems - Review of Systems Comments:: 09/11/16 19:17 CONSTITUTIONAL: Absent: fever, chills, diaphoresis, generalized weakness, malaise, loss of appetite HEENT: Absent: rhinorrhea, nasal congestion, throat pain, throat swelling, difficulty swallowing, mouth swelling, ear pain, eye pain, visual changes CARDIOVASCULAR: Absent: chest pain, syncope, palpitations, irregular heart rate, lightheadedness , peripheral edema RESPIRATORY: Absent: cough, shortness of breath, dyspnea with exertion, orthopnea, wheezing, stridor, hemoptysis GASTROINTESTINAL: Present: nausea, left sided abdominal pain Absent: abdominal distension, vomiting, diarrhea, constipation, melena, hematochezia GENITOURINARY: Absent: dysuria, frequency, urgency, hesitancy, hematuria, flank pain, genital pain MUSCULOSKELETAL: Absent: myalgia, arthralgia, joint swelling SKIN: Absent: rash, itching, pallor HEMATOLOGIC/IMMUNOLOGIC: Absent: easy bleeding, easy bruising, lymphadenopathy, frequent infections ENDOCRINE: Absent: unexplained weight gain, unexplained weight loss, heat intolerance, cold intolerance NEUROLOGIC: Absent: headache, focal weakness or paresthesia, dizziness, unsteady gait, seizure, mental status changes, bladder or bowel incontinence. PSYCHIATRIC: Absent: anxiety, depression, suicidal or homicidal ideation, hallucinations <Suzy Ramos - Last Filed: 09/11/16 19:19> *Physical Exam - Vital Signs Last Vital Signs Temp Pulse Resp BP Pulse Ox 98.1 F 86 18 131/51 98 09/11/16 17:04 09/11/16 17:04 09/11/16 17:04 09/11/16 17:04 09/11/16 17:04 <Greta Paige - Last Filed: 09/11/16 18:27> - Vital Signs Last Vital Signs Temp Pulse Resp BP Pulse Ox 98.1 F 80 20 115/80 98 09/11/16 17:04 09/11/16 19:00 09/11/16 19:00 09/11/16 19:00 09/11/16 17:04 - Physical Exam Comments: 09/11/16 19:18 GENERAL: Well developed, well nourished. Awake and alert. No acute distress. HEENT: Normocephalic, atraumatic. PERRLA, EOMI. No conjunctival pallor. Sclera are non- icteric. Moist mucous membranes. Oropharynx is clear. NECK: Supple. Full ROM. No JVD. Carotid pulses 2+ and symmetric, without bruits. No thyromegaly. No lymphadenopathy. CARDIOVASCULAR: Regular rate and rhythm. No murmurs, rubs, or gallops. Distal pulses are 2+ and symmetric. PULMONARY: No evidence of respiratory distress. Lungs clear to auscultation bilaterally. No wheezing, rales or rhonchi. ABDOMINAL: Soft. Non-tender. Non-distended. No rebound or guarding. No organomegaly. Normoactive bowel sounds. MUSCULOSKELETAL: Normal range of motion at all joints. No bony deformities or tenderness. No CVA tenderness. EXTREMITIES: No cyanosis. No clubbing. No edema. No calf tenderness. SKIN: Warm and dry. Normal capillary refill. No rashes. No jaundice. NEUROLOGICAL: Alert, awake, appropriate. Cranial nerves 2-12 intact. Normal speech. Gait is normal without ataxia. PSYCHIATRIC: Cooperative. Good eye contact. Appropriate mood and affect. <Suzy Ramos - Last Filed: 09/11/16 19:19> ED Treatment Course - Medications Given in the ED: ED Medications Discontinued Medications Generic Name Dose Route Start Last Admin Trade Name Freq PRN Reason Stop Dose Admin Acetaminophen 650 mg 09/11/16 18:23 09/11/16 18:29 Tylenol - PO 09/11/16 18:24 650 mg ONCE ONE Administration Al Hydroxide/Mg Hydroxide 30 ml 09/11/16 18:23 09/11/16 18:29 Mylanta Oral Suspension - PO 09/11/16 18:24 30 ml ONCE ONE Administration <Suzy Ramos - Last Filed: 09/11/16 19:19> *DC/Admit/Observation/Transfer <Greta Paige - Last Filed: 09/11/16 18:27> - Attestations Scribe Attestion: 09/11/16 19:19 Documentation prepared by Suzy Ramos, acting as medical equipment technician for Greta Paige MD. <Suzy Ramos - Last Filed: 09/11/16 19:19> Diagnosis at time of Disposition: Abdominal cramping - Discharge Dispostion Disposition: HOME Condition at time of disposition: Stable - Referrals Referrals: Naresh Blum MD [Primary Care Provider] - - Patient Instructions Printed Discharge Instructions: DI for Abdominal Pain-Adult Additional Instructions: please followup with your doctor
[2016-09-11] MEDS ORDERED: MAG HYDROX/AL HYDROX/SIMETH 30 ML UNIT-DOSE CUP PO ONE (18:23)
[2016-09-11] MEDS ORDERED: ACETAMINOPHEN 325 MG TABLET (FP) PO ONE (18:23)
[2016-09-11 19:01] VITALS: BP 115/80; PULSE 80
== END 2016-09-11 19:01 | disposition home or self-care (01) ==
LOC: JER 17:02
DX: R10.84 Generalized abdominal pain (principal)
CPT/HCPCS: 99282-25

== ENCOUNTER 2016-09-13 21:16 | Emergency (ER) | payer OTHER ==
[2016-09-13 21:27] VITALS: BP 128/80; PULSE 96; TEMP 98.6; BMI 24.0
[2016-09-13] MEDS ORDERED: DICYCLOMINE HCL 10 MG CAPSULE PO ONE (22:10)
--- NOTE | 2016-09-13 22:10 | PDOC ---
History of Present Illness - General History Source: Patient Exam Limitations: No Limitations - History of Present Illness Initial Comments: 09/13/16 22:16 The patient is a 21 year old male with significant past medical history of chronic intermittent abdominal pain, frequent visits to the ER, gerd and anxiety who presents to the ED for sudden onset of left lower abdominal pain prior to arrival. Patient was seen here a two days ago for same complaint. At the time, he appeared to be clinically well. He was treated and discharged. Patient returns today for left lower abdominal pain. States he developed the pain so sudden that he became lightheaded, dizzy and had chest tightness. Patient reports his pain radiates to the left flank with nausea, but no vomiting or diarrhea. The patient denies fever, chills, cough, SOB, chest pain, and palpitations. The patient denies dysuria, hematuria, urgency, and frequency. Allergies: NKDA Social History: No alcohol, tobacco, or drug use reported. Past Surgical History: None reported PCP: Dr. Naresh Blum GI: Dr. Simon El <Christi Hebert - Last Filed: 09/13/16 22:20> - General History Source: Patient <Salty Parada - Last Filed: 09/13/16 23:24> - General Chief Complaint: Chest Pain Stated Complaint: ABD PAIN Time Seen by Provider: 09/13/16 22:07 Past History <Christi Hebert - Last Filed: 09/13/16 22:20> - Past Medical History GI Disorders: Yes (gerd) Psychiatric Problems: Yes (Anxiety) Suicide Attempt (Hx): No - Immunization History Immunization Up to Date: Yes (FLU [id number]) - Psycho/Social/Smoking Cessation Hx Anxiety: No Suicidal Ideation: No Smoking Status: No Smoking History: Never smoked Have you smoked in the past 12 months: No Number of Cigarettes Smoked Daily: 0 Cigars Per Day: 0 Information on smoking cessation initiated: No Hx Alcohol Use: No Drug/Substance Use Hx: No Substance Use Type: None Hx Substance Use Treatment: No <Salty Parada - Last Filed: 09/13/16 23:24> - Past Medical History Allergies/Adverse Reactions: Allergies Allergy/AdvReac Type Severity Reaction Status Date / Time No Known Allergies Allergy Verified 04/27/17 21:21 Home Medications: Ambulatory Orders NK [No Known Home Medication] 09/11/16 Review of Systems - Review of Systems Able to Perform ROS?: Yes Comments:: 09/13/16 22:16 CONSTITUTIONAL: Absent: fever, no chills, no fatigue EYES: Absent: visual changes ENT: Absent: ear pain, no sore throat CARDIOVASCULAR: +lightheadedness Absent: chest pain, no palpitations RESPIRATORY: +chest tightness Absent: cough, no SOB GI: +left lower abdominal pain, nausea Absent: no vomiting, no constipation, no diarrhea GENITOURINARY: +left flank pain Absent: dysuria, no frequency, no hematuria MUSCULOSKELETAL: Absent: back pain, no arthralgia, no myalgia SKIN: Absent: rash NEURO: +dizzy Absent: headache <Christi Hebert - Last Filed: 09/13/16 22:20> *Physical Exam - Vital Signs Last Vital Signs Temp Pulse Resp BP Pulse Ox 98.6 F 96 H 17 128/80 98 09/13/16 21:21 09/13/16 21:21 09/13/16 21:21 09/13/16 21:21 09/13/16 21:21 - Physical Exam Comments: 09/13/16 22:16 GENERAL: Well-appearing, well-nourished. No apparent distress. HEENT: Normocephalic, atraumatic. PERRL, EOM intact. CARDIOVASCULAR: Normal S1, S2. Regular rate and rhythm. PULMONARY: Clear to auscultation bilaterally. ABDOMEN: Soft, non-distended, non-tender. EXTREMITIES: Normal ROM in all four extremities. No gross deformities. SKIN: Warm, dry. No rash NEUROLOGICAL: No focal neurological deficits. <Christi Hebert - Last Filed: 09/13/16 22:20> - Vital Signs Last Vital Signs Temp Pulse Resp BP Pulse Ox 98.6 F 96 H 17 128/80 98 09/13/16 21:21 09/13/16 21:21 09/13/16 21:21 09/13/16 21:21 09/13/16 21:21 <Salty Parada - Last Filed: 09/13/16 23:24> Heart Score/ECG Review - ECG Impressions Comment:: 09/13/16 22:20 NSR @84bpm Normal ECG <Christi Hebert - Last Filed: 09/13/16 22:20> Medical Decision Making - Medical Decision Making 09/13/16 23:23 Dr. Parada: The scribe's documentation has been prepared under my direction and personally reviewed by me in its entirery. I confirm that the note above accurately reflects all work, treatment, procedures, and medical decision making performed by me. Pt UA is negative. Pt is frequently for multiple complaints. Hemodynamically stable. Requesting something to help pass stool. Pt given single dose of Lactulose <Salty Parada - Last Filed: 09/13/16 23:24> *DC/Admit/Observation/Transfer - Attestations Scribe Attestion: 09/13/16 22:17 Documentation prepared by Chrisit Hebert, acting as biomedical engineering technologist for Salty Parada MD <Christi Hebert - Last Filed: 09/13/16 22:20> - Discharge Dispostion Admit: No <Salty Parada - Last Filed: 09/13/16 23:24> Diagnosis at time of Disposition: Abdominal pain Qualifiers: Abdominal location: generalized Qualified Code(s): R10.84 - Generalized abdominal pain - Discharge Dispostion Disposition: HOME Condition at time of disposition: Stable - Referrals Referrals: Naresh Blum MD [Primary Care Provider] - - Patient Instructions Printed Discharge Instructions: DI for Abdominal Pain-Adult
[2016-09-13] MEDS ORDERED: DICYCLOMINE HCL 10 MG CAPSULE ONE (22:17)
[2016-09-13 22:33] LABS: URINE APPEARANCE CLEAR; URINE BILIRUBIN NEGATIVE (NEGATIVE); URINE BLOOD NEGATIVE (NEGATIVE); URINE COLOR STRAW; URINE GLUCOSE (UA) NEGATIVE (NEGATIVE); URINE KETONE NEGATIVE (NEGATIVE); URINE LEUK ESTERASE NEGATIVE (NEGATIVE); URINE NITRITE NEGATIVE (NEGATIVE); URINE PROTEIN NEGATIVE (NEGATIVE); URINE UROBILINOGEN NEGATIVE E.U./dl (0.2-1.0)
[2016-09-13 23:16] LABS: URINE MARIJUANA THC NEGATIVE ng/ml (CUTOFF=50)
[2016-09-13] MEDS ORDERED: LACTULOSE 20 GM/30 ML UDC (FOR ORAL USE ONLY) PO ONE (23:22)
[2016-09-13] MEDS ORDERED: LACTULOSE 20 GM/30 ML UDC (FOR ORAL USE ONLY) ONE (23:30)
--- NOTE | 2016-09-15 11:23 | EKG ---
Test Reason : Blood Pressure : / mmHG Vent. Rate : 084 BPM Atrial Rate : 084 BPM P-R Int : 126 ms QRS Dur : 088 ms QT Int : 346 ms P-R-T Axes : 056 032 052 degrees QTc Int : 408 ms NORMAL SINUS RHYTHM NORMAL ECG WHEN COMPARED WITH ECG OF 15-MAY-2016 01:12, NO SIGNIFICANT CHANGE WAS FOUND Confirmed by KAVON MARTINEZ MD ([id number]) on 09/15/2016 11:23:16 AM Referred By: Confirmed By:KAVON MARTINEZ MD
== END 2016-09-13 23:38 | disposition home or self-care (01) ==
LOC: JER 21:16
DX: R10.84 Generalized abdominal pain (principal); K21.9 Gastro-esophageal reflux disease without esophagitis; F41.9 Anxiety disorder, unspecified
CPT/HCPCS: 80307; 81003; 93005; 93010; 99282-25

== ENCOUNTER 2016-09-17 15:35 | Emergency (ER) | payer OTHER ==
[2016-09-17 15:52] VITALS: BP 111/61; PULSE 69; TEMP 98.9; BMI 23.3
[2016-09-17] MEDS ORDERED: IBUPROFEN 600 MG TABLET (FP) PO ONE (16:35)
[2016-09-17] MEDS ORDERED: MAG HYDROX/AL HYDROX/SIMETH 30 ML UNIT-DOSE CUP PO ONE (16:35)
--- NOTE | 2016-09-17 16:44 | PDOC ---
History of Present Illness - General Chief Complaint: Pain Stated Complaint: RIBCAGE PAIN Time Seen by Provider: 09/17/16 15:56 History Source: Patient Exam Limitations: No Limitations - History of Present Illness Initial Comments: 09/17/16 16:39 21 yr male with history of chronic intermittent abd pain, GERD, anxiety , multiple ER visits for same. Pt has had cat scans, labs which were negative . Pt arrives today states while running up a hill began to have cramping to left flank and mid abdomen with flatulence. Pt denies vomiting no diarrhea states he has chronic constipation. Denies suicidal or homicidal thoughts. Pt denies having a history of diagnosed anxiety however states he gets anxious with the cramping. Timing/Duration: reports: intermittent Past History - Past Medical History Allergies/Adverse Reactions: Allergies Allergy/AdvReac Type Severity Reaction Status Date / Time No Known Allergies Allergy Verified 09/17/16 15:49 Home Medications: Ambulatory Orders NK [No Known Home Medication] 09/11/16 GI Disorders: Yes (gerd) Psychiatric Problems: Yes (Anxiety) Suicide Attempt (Hx): No - Immunization History Immunization Up to Date: Yes (FLU [id number]) - Psycho/Social/Smoking Cessation Hx Anxiety: No Suicidal Ideation: No Smoking Status: No Smoking History: Never smoked Have you smoked in the past 12 months: No Number of Cigarettes Smoked Daily: 0 Cigars Per Day: 0 Hx Alcohol Use: No Drug/Substance Use Hx: No Substance Use Type: None Hx Substance Use Treatment: No Abd/GI Specific PMHX - Complaint Specific PMHX Colitis: No Diverticulitis: No Gall Bladder Disease: No GERD: Yes Hepatitis: No Irritable Bowel Synd (IBS): No Pancreatitis: No GI Ulcer Disease: No Review of Systems - Review of Systems Able to Perform ROS?: Yes Comments:: 09/18/16 19:32 Is the patient limited Wallisian proficient: No Constitutional: No: Symptoms Reported HEENTM: No: Symptoms Reported Respiratory: No: Symptoms reported Cardiac (ROS): No: Symptoms Reported ABD/GI: Yes: Symptoms Reported : No: Symptoms Reported Musculoskeletal: No: Symptoms Reported Integumentary: No: Symptoms Reported Neurological: No: Symptoms reported *Physical Exam - Vital Signs Last Vital Signs Temp Pulse Resp BP Pulse Ox 98.9 F 69 19 111/61 97 09/17/16 15:49 09/17/16 15:49 09/17/16 15:49 09/17/16 15:49 09/17/16 15:49 - Physical Exam General Appearance: Yes: Nourished, Appropriately Dressed HEENT: positive: EOMI, TIFFANIE, Pharyngeal Erythema. negative: Tonsillar Exudate, Tonsillar Erythema Neck: positive: Supple. negative: Lymphadenopathy (R), Lymphadenopathy (L) Respiratory/Chest: positive: Lungs Clear, Normal Breath Sounds Cardiovascular: positive: Regular Rhythm, Regular Rate Gastrointestinal/Abdominal: positive: Normal Bowel Sounds, Soft. negative: Tender, Tenderness (no tenderness ) Male Genitalia: positive: normal genitalia Rectal Exam: positive: deferred Musculoskeletal: positive: Normal Inspection. negative: CVA Tenderness, CVA Tenderness (R), CVA Tenderness (L), Muscle Spasm, Vertebral Tenderness Extremity: positive: Normal Capillary Refill, Normal Inspection, Normal Range of Motion Integumentary: positive: Normal Color, Dry, Warm Neurologic: positive: Fully Oriented, Alert, Normal Mood/Affect, Normal Response , Motor Strength 5/5 Medical Decision Making - Medical Decision Making 09/17/16 16:41 cc: left flank to upper abdomen and across back cramping [place] the park this [place]. Pt states he then felt anxious denies anxiety at present, no chest pain neg nvd, neg abd pain at present pt has appointment SatSeptember 19 with GI I will give motrin and maalox for pain pt states the symptoms today are the same as he has had in the past. denies abd surgery denies ETOH or drug use. 09/18/16 19:33 *DC/Admit/Observation/Transfer Diagnosis at time of Disposition: Abdominal cramping - Discharge Dispostion Disposition: HOME Condition at time of disposition: Good - Referrals Referrals: Naresh Blum MD [Primary Care Provider] - - Patient Instructions Additional Instructions: follow with the GI doctor on Saturday as planned eat a bland diet avoid spicy foods, avoid dairy products and avoid any products with gluten as this can help with your abd pain drink pleanty of water to stay hydrated take motrin as directed for pain Return to ER for any WORSENING symptoms
== END 2016-09-17 16:49 | disposition home or self-care (01) ==
LOC: JERFT 15:35
DX: R10.84 Generalized abdominal pain (principal); F41.9 Anxiety disorder, unspecified; K21.9 Gastro-esophageal reflux disease without esophagitis
CPT/HCPCS: 99281-25

== ENCOUNTER → 2016-09-20 | Emergency (ER) | payer OTHER ==
[~2016-09-20] MED LIST changes: -ACETAMINOPHEN 325 MG TABLET (FP) ONE; -MAG HYDROX/AL HYDROX/SIMETH 30 ML UNIT-DOSE CUP ONE; -METHOCARBAMOL 500 MG TABLET ONE; -METHOCARBAMOL 500 MG TABLET PO ONE; -RANITIDINE HCL 150 MG TABLET (FP) ONE
[2016-09-20 09:24] VITALS: BMI 23.3
--- NOTE | 2016-09-20 09:39 | PDOC ---
History of Present Illness - General History Source: Patient Exam Limitations: No Limitations - History of Present Illness Initial Comments: 09/20/16 10:19 The patient is a 21 year old male, with a significant past medical history of GERD, Chronic recurrent abdominal pain, Anxiety, multiple ED visits who presents to the emergency department with abdominal pain. The patient reports his pain began this morning with associated nausea. The patient reports 1 episode of constipation however denies any fever, chills or night sweats. The patient was evaluated in the ED on 09/17/2016 for the same complaint and was discharged with GI follow up. CTAP on 08/12/2016 revealed several mildly prominent right lower quadrant mesenteric lymph nodes without obvious interval change. The patient additionally reports unexplained 10 pound weight loss within the last month and presents to the ED for further evaluation. He denies chest pain, headache or dizziness. He denies vomit, diarrhea. He denies dysuria, frequency, urgency or hematuria. Allergies: NKA Past surgical history: None Social history: None PCP: Dr. Kraus <Lyly Leal - Last Filed: 09/20/16 12:52> <Kiet Pathak - Last Filed: 09/20/16 13:02> - General Chief Complaint: Pain Stated Complaint: ABD PAIN Time Seen by Provider: 09/20/16 09:39 Past History <Lyly Leal - Last Filed: 09/20/16 12:52> - Past Medical History GI Disorders: Yes (gerd) Psychiatric Problems: Yes (Anxiety) Suicide Attempt (Hx): No - Immunization History Immunization Up to Date: Yes (FLU 8370-1327) - Psycho/Social/Smoking Cessation Hx Anxiety: No Suicidal Ideation: No Smoking Status: No Smoking History: Never smoked Have you smoked in the past 12 months: No Number of Cigarettes Smoked Daily: 0 Cigars Per Day: 0 Information on smoking cessation initiated: No Hx Alcohol Use: No Drug/Substance Use Hx: No Substance Use Type: None Hx Substance Use Treatment: No <Kiet Pathak - Last Filed: 09/20/16 13:02> - Past Medical History Allergies/Adverse Reactions: Allergies Allergy/AdvReac Type Severity Reaction Status Date / Time No Known Allergies Allergy Verified 09/20/16 09:44 Home Medications: Ambulatory Orders NK [No Known Home Medication] 09/11/16 Review of Systems - Review of Systems Able to Perform ROS?: Yes Comments:: 09/20/16 10:20 CONSTITUTIONAL: Absent: fever, chills, diaphoresis, generalized weakness, malaise, loss of appetite HEENT: Absent: rhinorrhea, nasal congestion, throat pain, throat swelling, difficulty swallowing, mouth swelling, ear pain, eye pain, visual Changes CARDIOVASCULAR: Absent: chest pain, syncope, palpitations, irregular heart rate, lightheadedness , peripheral edema RESPIRATORY: Absent: cough, shortness of breath, dyspnea with exertion, orthopnea, wheezing, stridor, hemoptysis GASTROINTESTINAL: +abdominal pain, nausea. Absent: abdominal distension, vomiting, diarrhea, constipation, melena, hematochezia GENITOURINARY: Absent: dysuria, frequency, urgency, hesitancy, hematuria, flank pain, genital pain MUSCULOSKELETAL: Absent: myalgia, arthralgia, joint swelling SKIN: Absent: rash, itching, pallor HEMATOLOGIC/IMMUNOLOGIC: Absent: easy bleeding, easy bruising, lymphadenopathy, frequent infections ENDOCRINE: Absent: unexplained weight gain, unexplained weight loss, heat intolerance, cold intolerance NEUROLOGIC: Absent: headache, focal weakness or paresthesias, dizziness, unsteady gait, seizure, mental status changes, bladder or bowel incontinence PSYCHIATRIC: Absent: anxiety, depression, suicidal or homicidal ideation, hallucinations. <Lyly Leal - Last Filed: 09/20/16 12:52> *Physical Exam - Vital Signs Last Vital Signs Temp Pulse Resp BP Pulse Ox 98.2 F 89 18 123/70 99 09/20/16 09:22 09/20/16 09:22 09/20/16 09:22 09/20/16 09:22 09/20/16 09:22 - Physical Exam Comments: 09/20/16 10:20 GENERAL: Well developed, well nourished. Awake and alert. In no acute distress. HEENT: Normocephalic, atraumatic. PERRLA, EOMI. No conjunctival pallor. Sclera are non- icteric. Moist mucous membranes. Oropharynx is clear. NECK: Supple. Full ROM. No JVD. Carotid pulses 2+ and symmetric, without bruits. No thyromegaly. No lymphadenopathy. CARDIOVASCULAR: Regular rate and rhythm. No murmurs, rubs, or gallops. Distal pulses are 2+ and symmetric. PULMONARY: No evidence of respiratory distress. Lungs clear to auscultation bilaterally. No wheezing, rales or rhonchi. ABDOMINAL: Soft. Non-tender. Non-distended. No rebound or guarding. No organomegaly. Normoactive bowel sounds. MUSCULOSKELETAL Normal range of motion at all joints. No bony deformities or tenderness. No CVA tenderness. EXTREMITIES: No cyanosis. No clubbing. No edema. No calf tenderness. SKIN: Warm and dry. Normal capillary refill. No rashes. No jaundice. NEUROLOGICAL: Alert, awake, appropriate. Cranial nerves 2-12 intact. No deficits to light touch and temperature in face, upper extremities and lower extremities. No motor deficits in the in face, upper extremities and lower extremities. Normoreflexic in the upper and lower extremities. Normal speech. Toes are downgoing bilaterally. Gait is normal without ataxia. PSYCHIATRIC: Cooperative. Good eye contact. Appropriate mood and affect. <Lyly Leal - Last Filed: 09/20/16 12:52> - Vital Signs Last Vital Signs Temp Pulse Resp BP Pulse Ox 98.2 F 89 18 123/70 99 09/20/16 09:22 09/20/16 09:22 09/20/16 09:22 09/20/16 09:22 09/20/16 09:22 <Kiet Pathak - Last Filed: 09/20/16 13:02> ED Treatment Course - LABORATORY CBC & Chemistry Diagram: 09/20/16 10:24 09/20/16 10:24 <Lyly Leal - Last Filed: 09/20/16 12:52> - LABORATORY CBC & Chemistry Diagram: 09/20/16 10:24 09/20/16 10:24 <Kiet Pathak - Last Filed: 09/20/16 13:02> Medical Decision Making - Medical Decision Making 09/20/16 12:17 CT AP Impression:Distended urinary bladder, otherwise normal CT scan of the abdomen and pelvis with no evidence of lymphadenopathy or acute pathology. <Lyly Leal - Last Filed: 09/20/16 12:52> - Medical Decision Making 09/20/16 9:41 The patient is well-appearing and in no acute distress Given the previous finding of intra-abdominal lymphadenopathy, and the time that has passed since his last CT scan, will obtain CT of the abdomen and pelvis 09/20/16 11:41 CBC noted UA noted 09/20/16 12:[address] pending 09/20/16 12:49 CT noted, without any acute intra-abdominal pathology He does tell me that he feels that he has a problem with chronic constipation. He has seen Dr. Peterson and Dr. 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 Will prescribe Meghan lax, which she has taken in the past with effect. Will refer to gastroenterology for further evaluation Clinical impression: Chronic abdominal pain I discussed the physical exam findings, ancillary test results and final diagnoses with the patient. I answered all of the patient's questions. The patient was satisfied with the care received and felt comfortable with the discharge plan and treatment plan. The patient will call their primary care physician within 24 hours to arrange follow-up and will return to the Emergency Department with any new, persistent or worsening symptoms. A portion of this note was documented by scribe services under my direction. I have reviewed the details of the note, within reason, and agree with the documentation with the following case summary and management plan written by me. 09/20/16 12:59 <Kiet Pathak - Last Filed: 09/20/16 13:02> *DC/Admit/Observation/Transfer - Attestations Scribe Attestion: 09/20/16 10:20 Documentation prepared by Lyly Leal, acting as medical office receptionist assistant for Kiet Pathak MD/. <Lyly Leal - Last Filed: 09/20/16 12:52> <Kiet Pathak - Last Filed: 09/20/16 13:02> Diagnosis at time of Disposition: Chronic abdominal pain, Constipation - Discharge Dispostion Disposition: HOME Condition at time of disposition: Stable - Referrals Referrals: Naresh Blum MD [Primary Care Provider] - Clemente Erickson DO [Staff Physician] - Call tomorrow - Patient Instructions Printed Discharge Instructions: DI for Abdominal Pain-Adult, DI for Constipation Additional Instructions: Return to the emergency department immediately with ANY new, persistent or worsening symptoms. You MUST call and follow up with your doctor tomorrow. Please make sure your doctor reviews the results of your emergency department evaluation.
[2016-09-20 10:51] LABS: EOSINOPHIL 5.8 % (0-4.5); MCHC 34.6 g/dl (32.0-35.9); MEAN PLT VOLUME 10.4 fl (7.5-11.1); PLATELET COUNT 171 K/MM3 (134-434)
[2016-09-20 10:56] LABS: URINE APPEARANCE CLEAR; URINE BILIRUBIN NEGATIVE (NEGATIVE); URINE BLOOD NEGATIVE (NEGATIVE); URINE COLOR STRAW; URINE GLUCOSE (UA) NEGATIVE (NEGATIVE); URINE KETONE NEGATIVE (NEGATIVE); URINE LEUK ESTERASE NEGATIVE (NEGATIVE); URINE NITRITE NEGATIVE (NEGATIVE); URINE PROTEIN NEGATIVE (NEGATIVE); URINE UROBILINOGEN NEGATIVE E.U./dl (0.2-1.0)
[2016-09-20 11:00] LABS: MCH 28.5 pg (25.7-33.7); MEAN CELL VOLUME 82.5 fl (80-96); NEUTROPHILS 67.1 % (42.8-82.8); RDW 13.6 % (11.9-15.9); WHITE BLOOD COUNT 5.7 K/mm3 (4.0-10.0)
[2016-09-20 12:23] LABS: ALBUMIN 4.2 g/dl (3.4-5.0); ANION GAP 7 (8-16); CALCIUM 9.4 mg/dL (8.5-10.1); CO2 29 mmol/L (21-32); COCKROFT - GAULT 134.73; CREATININE 0.8 mg/dL (0.7-1.3); GLUCOSE,RANDOM 86 mg/dL (74-106); SGPT/ALT 20 U/L (12-78)
[2016-09-20 12:24] LABS: BILIRUBIN,TOTAL 0.5 mg/dL (0.2-1.0); TOT PROT 7.4 g/dl (6.4-8.2)
[2016-09-20 12:26] LABS: ALK PHOS 91 U/L (45-117); SGOT/AST 21 U/L (15-37)
[2016-09-20 13:12] VITALS: BP 129/79; PULSE 69; TEMP 98.5
== END | disposition home or self-care (01) ==
LOC: JER 09:20
DX: R10.84 Generalized abdominal pain (principal); K21.9 Gastro-esophageal reflux disease without esophagitis
CPT/HCPCS: 74177-TC; 80053; 81003; 83690; 85025; 99282-25; Q9967

== ENCOUNTER 2016-09-23 20:30 | Emergency (ER) | payer OTHER ==
[2016-09-23 20:38] VITALS: BP 126/83; PULSE 87; TEMP 98.7; BMI 23.6
[2016-09-23] MEDS ORDERED: KETOROLAC TROMETHAMINE 30 MG/1 ML VIAL IVPUSH ONE (22:20)
[2016-09-23] MEDS ORDERED: POLYETHYLENE GLYCOL 3350 255 GM BTL PO ONE (22:34)
--- NOTE | 2016-09-23 23:22 | PDOC ---
History of Present Illness - General Chief Complaint: Constipation Stated Complaint: ABD PAIN Time Seen by Provider: 09/23/16 22:23 History Source: Patient Exam Limitations: No Limitations - History of Present Illness Initial Comments: 09/23/16 23:18 Patient is a 21 year old male with h/o anxiety, GERD, chronic recurrent abd pain c/o left flank pain sudden onset tonight. States she feels like he has to pass his bowel but it wont come out. States has rectal pain as well. Patient claims he had a hard BM yesterday and today. He took mycelex by unable to pass his bowel. Patient does not want a work up states he has had many work up in the ED. Was seen yesterday and CT done which showed no acute process had a distended bladder but has urinated since. He is just requesting something to get the "stuff out of him". States he feels anxious. PMD: Dr. Blum PMHX: as above PSOCHx: Negative drug, EtOH, cigarette PFamHx: noncontributory All: NKDA GENERAL/CONSTITUTIONAL: [No fever or chills. No weakness. No weight change.] HEAD, EYES, EARS, NOSE AND THROAT: [No change in vision. No ear pain or discharge. No sore throat.] CARDIOVASCULAR: [No chest pain or shortness of breath.] RESPIRATORY: [No cough, wheezing, or hemoptysis.] GASTROINTESTINAL: (+) nausea, vomiting, diarrhea or constipation. No rectal bleeding.] GENITOURINARY: (+) dysuria, frequency, or change in urination.] MUSCULOSKELETAL: [No joint or muscle swelling or pain. No neck or back pain.] SKIN AND BREASTS: [No rash or easy bruising.] NEUROLOGIC: [No headache, vertigo, loss of consciousness, or loss of sensation.] PSYCHIATRIC: [No depression (+) anxiety.] ENDOCRINE: [No increased thirst. No abnormal weight change.] HEMATOLOGIC/LYMPHATIC: [No anemia, easy bleeding, or history of blood clots.] ALLERGIC/IMMUNOLOGIC: [No hives or skin allergy. No latex allergy.] GENERAL: [The patient is awake, alert, and fully oriented, in mild distress, appears anxious] HEAD: [Normal with no signs of trauma.] EYES: [Pupils equal, round and reactive to light, extraocular movements intact, sclera anicteric, conjunctiva clear.] ENT: [Ears normal, nares patent, oropharynx clear without exudates. Moist mucous membranes.] NECK: [Normal range of motion, supple without lymphadenopathy, JVD, or masses.] LUNGS: [Breath sounds equal, clear to auscultation bilaterally. No wheezes, and no crackles.] HEART: [Regular rate and rhythm, normal S1 and S2 without murmur, rub.] ABDOMEN: [Soft, nontender, normoactive bowel sounds. No guarding, no rebound. No masses, (+) CVAT left ] EXTREMITIES: [Normal range of motion, no edema. No clubbing or cyanosis. No cords, erythema, or tenderness.] NEUROLOGICAL: [Cranial nerves II through XII grossly intact. Normal speech, normal gait.] PSYCH: [Normal mood, normal affect.] SKIN: [Warm, Dry, normal turgor, no rashes or lesions noted.] Past History - Past Medical History Allergies/Adverse Reactions: Allergies Allergy/AdvReac Type Severity Reaction Status Date / Time No Known Allergies Allergy Verified 09/20/16 09:44 Home Medications: Ambulatory Orders NK [No Known Home Medication] 09/11/16 GI Disorders: Yes (gerd) Psychiatric Problems: Yes (Anxiety) Suicide Attempt (Hx): No - Immunization History Immunization Up to Date: Yes (FLU [id number]) - Psycho/Social/Smoking Cessation Hx Anxiety: No Suicidal Ideation: No Smoking Status: No Smoking History: Never smoked Have you smoked in the past 12 months: No Number of Cigarettes Smoked Daily: 0 Cigars Per Day: 0 Hx Alcohol Use: No Drug/Substance Use Hx: No Substance Use Type: None Hx Substance Use Treatment: No Abd/GI Specific PMHX - Complaint Specific PMHX Colitis: No Diverticulitis: No Gall Bladder Disease: No GERD: Yes Hepatitis: No Irritable Bowel Synd (IBS): No Pancreatitis: No GI Ulcer Disease: No *Physical Exam - Vital Signs Last Vital Signs Temp Pulse Resp BP Pulse Ox 98.7 F 87 20 126/83 98 09/23/16 20:37 09/23/16 20:37 09/23/16 20:37 09/23/16 20:37 09/23/16 20:37 Medical Decision Making - Medical Decision Making 09/23/16 23:19 Patient is a 21 year old male with h/o anxiety, GERD, chronic recurrent abd pain c/o left flank pain sudden onset tonight, states constipated and requesting a laxative. Patient has anxiety and symptoms consistent with anxiety attack will give Miralax I discussed the physical exam findings, ancillary test results and final diagnoses with the patient. I answered all of the patient's questions. The patient was satisfied with the care received and felt comfortable with the discharge plan and treatment plan. The Patient agrees to follow up with the primary care physician within 24-72 hours. *DC/Admit/Observation/Transfer Diagnosis at time of Disposition: Constipation Qualifiers: Constipation type: unspecified constipation type Qualified Code(s): K59.00 - Constipation, unspecified - Referrals Referrals: Naresh Blum MD [Primary Care Provider] - - Patient Instructions Printed Discharge Instructions: DI for Constipation Additional Instructions: Your Discharge Instructions: You must call primary care physician within 24 hours to arrange follow-up. Return to the Emergency Department with any new, persistent or worsening symptoms, for fever, chills, SOB, dizziness or any other concerning changes that may occur.
== END 2016-09-23 23:31 | disposition home or self-care (01) ==
LOC: JER 20:30
DX: K59.00 Constipation, unspecified (principal); K21.9 Gastro-esophageal reflux disease without esophagitis; F41.9 Anxiety disorder, unspecified
CPT/HCPCS: 99282-25

== ENCOUNTER 2016-09-28 20:02 | Emergency (ER) | payer OTHER ==
[2016-09-28 20:21] VITALS: BP 124/74; PULSE 71; TEMP 98.6; BMI 23.6
[2016-09-28] MEDS ORDERED: MAG HYDROX/AL HYDROX/SIMETH 30 ML UNIT-DOSE CUP PO ONE (21:10)
[2016-09-28] MEDS ORDERED: DICYCLOMINE HCL 20 MG TABLET PO ONE (21:11)
[2016-09-28] MEDS ORDERED: MAG HYDROX/AL HYDROX/SIMETH 30 ML UNIT-DOSE CUP ONE (21:12)
--- NOTE | 2016-09-28 21:16 | PDOC ---
History of Present Illness - General Chief Complaint: Back Pain Stated Complaint: BACK PAIN Time Seen by Provider: 09/28/16 20:42 History Source: Patient Exam Limitations: No Limitations - History of Present Illness Initial Comments: 09/28/16 21:20 My Chief Complaint: abdominal bloating, slight nausea, left lower back discomfort History of Present Illness: Pt. is a 21-year-old male with history of GERD, IBS , and anxiety here today complaining of abdominal discomfort with belching and bloating of back that started when he was eating lentils today. Patient noted to be belching in exam room. Patient reports that he feels a discomfort in his lower back intermittently. He is frequently in the emergency room complaining of abdominal discomfort patient last had a CAT scan of his abdomen and pelvis with contrast on 09/20/2016 and was noted to have a slightly distended urinary bladder otherwise normal CT of his abdomen and pelvis with no evidence of lymphadenopathy or acute pathology per Dr. carmelo koenig and patient also had an MRI of his lumbar spine without contrast on 08/31/2016. 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 Ontiveros. He denies any radiation of pain down the legs or any numbness of legs or any saddle anesthesia. Patient reports having a bowel movement prior to eating today that was hard was normal and color brown formed with no rectal bleeding. Patient had been in the emergency room recently was giving a prescription for MiraLAX for which she says he is taking. Patient also reports that he takes Bentyl intermittently for bloating and abdominal discomfort he last took this this morning. 09/28/16 21:44 09/28/16 21:48 Timing/Duration: changing over time Severity: moderate Associated Symptoms: reports: other (belging a lot, bloating abdominal, left lower back pain ) Past History - Past Medical History Allergies/Adverse Reactions: Allergies Allergy/AdvReac Type Severity Reaction Status Date / Time No Known Allergies Allergy Verified 09/20/16 09:44 Home Medications: Ambulatory Orders NK [No Known Home Medication] 09/11/16 GI Disorders: Yes (gerd) Psychiatric Problems: Yes (Anxiety) Suicide Attempt (Hx): No - Immunization History Immunization Up to Date: Yes (FLU [id number]) - Psycho/Social/Smoking Cessation Hx Anxiety: No Suicidal Ideation: No Smoking Status: No Smoking History: Never smoked Have you smoked in the past 12 months: No Number of Cigarettes Smoked Daily: 0 Cigars Per Day: 0 Information on smoking cessation initiated: No Hx Alcohol Use: No Drug/Substance Use Hx: No Substance Use Type: None Hx Substance Use Treatment: No Review of Systems - Review of Systems Able to Perform ROS?: Yes Constitutional: No: Symptoms Reported HEENTM: No: Symptoms Reported Respiratory: No: Symptoms reported Cardiac (ROS): No: Symptoms Reported ABD/GI: Yes: Nausea, Abdominal cramping, Other (belging a lot, bloating ) Musculoskeletal: Yes: Back Pain (left lower back more like a pressure when abdomen cramps) Integumentary: No: Symptoms Reported Neurological: No: Symptoms reported *Physical Exam - Vital Signs Last Vital Signs Temp Pulse Resp BP Pulse Ox 98.6 F 71 18 124/74 99 09/28/16 20:19 09/28/16 20:19 09/28/16 20:19 09/28/16 20:19 09/28/16 20:19 - Physical Exam General Appearance: Yes: Appropriately Dressed Respiratory/Chest: positive: Lungs Clear, Normal Breath Sounds. negative: Chest Tender, Respiratory Distress Cardiovascular: positive: Regular Rhythm, Regular Rate, S1, S2 Gastrointestinal/Abdominal: positive: Normal Bowel Sounds, Tender (minimal left lateral mid abdomen ), Soft. negative: Organomegaly, Distended, Guarding, Rebound, Tenderness, Hepatomegaly, Spleenomegaly Musculoskeletal: positive: Normal Inspection, Other (left lower back slight tenderness). negative: CVA Tenderness, CVA Tenderness (R), CVA Tenderness (L), Decreased Range of Motion, Muscle Spasm, Vertebral Tenderness Integumentary: positive: Normal Color Neurologic: positive: Alert, Normal Response, Motor Strength 5/5 (lower ), Respond to painful stimul (b/l legs ), Responsive, Other (negative SLR b/l ). negative: Sensory Deficit Medical Decision Making - Medical Decision Making 09/28/16 21:48 Pt. is a 21-year-old male with history of GERD, IBS, and anxiety here today complaining of abdominal discomfort with belching and bloating of back that started when he was eating lentils today. Patient noted to be belching in exam room. Patient reports that he feels a discomfort in his lower back intermittently. He is frequently in the emergency room complaining of abdominal discomfort patient last had a CAT scan of his abdomen and pelvis with contrast on 09/20/2016 and was noted to have a slightly distended urinary bladder otherwise normal CT of his abdomen and pelvis with no evidence of lymphadenopathy or acute pathology per Dr. carmelo koenig and patient also had an MRI of his lumbar spine without contrast on 08/31/2016. 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 Ontiveros. He denies any radiation of pain down the legs or any numbness of legs or any saddle anesthesia. Patient reports having a bowel movement prior to eating today that was hard was normal and color brown formed with no rectal bleeding. Patient had been in the emergency room recently was giving a prescription for MiraLAX for which she says he is taking. Patient also reports that he takes Bentyl intermittently for bloating and abdominal discomfort he last took this this morning. abdominal bloating, belging Indigestion PLAN: bentyl 20 mg po now maalox 30 ml po now feeling much better will discharge to home no back pain or abdominal pain presently pt. to follow up with Dr. Fernando on 10/05/16 as previously scheduled per pt. 09/28/16 21:57 09/28/16 22:03 09/28/16 22:03 *DC/Admit/Observation/Transfer Diagnosis at time of Disposition: Indigestion - Discharge Dispostion Disposition: HOME Condition at time of disposition: Stable - Patient Instructions Additional Instructions: Follow up with Dr. Fernando as previously scheduled a 10/05/2016 avoid foods that are gaseous such as cabbage, lentils and spicey foods Take Bentyl and anti acid as previously ordered Return to emergency room if symptoms reoccur or new or new symptoms develop patient voiced understanding of discharge instructions and all questions were answered
[2016-09-28] MEDS ORDERED: DICYCLOMINE HCL 10 MG CAPSULE ONE (21:17)
== END 2016-09-28 22:06 | disposition home or self-care (01) ==
LOC: JERFT 20:02 → SUPCPDRO 20:02 → JERFT 22:06
DX: K30 Functional dyspepsia (principal); K21.9 Gastro-esophageal reflux disease without esophagitis; F41.9 Anxiety disorder, unspecified
CPT/HCPCS: 99281-25

== ENCOUNTER 2016-09-28 23:54 | Emergency (ER) | payer OTHER ==
[2016-09-29 00:30] VITALS: BP 128/76; PULSE 80; TEMP 97.1; BMI 29.2
--- NOTE | 2016-09-29 00:50 | PDOC ---
History of Present Illness - General Chief Complaint: Psychiatric Stated Complaint: ANXIETY ATTACK DUE TO PRESCRIBED MED Time Seen by Provider: 09/29/16 00:30 History Source: Patient Exam Limitations: No Limitations - History of Present Illness Initial Comments: 21-year-old male with a history of anxiety, GERD and chronic abdominal discomfort presents to the emergency department today complaining of indigestion. Patient states he felt bloated approximately one hour prior to coming to the emergency department. He denies nausea, vomiting, fever/chills/ diarrhea, sore throat, neck/back pains, chest pain, shortness of breath, flank pains, urinary symptoms. Patient says while waiting in the emergency department waiting area, he burped 3 times and feels 100% better. Patient states he has an appointment with his GI doctor/Dr. Rhodes on October 05. Timing/Duration: just prior to arrival Associated Symptoms: ingestion Past History - Past Medical History Allergies/Adverse Reactions: Allergies No Known Allergies Allergy (Verified 09/29/16 00:05) Home Medications: Ambulatory Orders NK [No Known Home Medication] 09/11/16 Surgical History: Yes: No Surgical History - Immunization History Immunization Up to Date: Yes (FLU [id number]) Tetanus Status: Less than 5 years - Social History Smoking History: No Smoking Status: Never smoked Number of Cigarettes Per Day: 0 Cigars Per Day: 0 Alcohol Use: none Drug Use: none *Review of Systems - Review of Systems Able to Perform ROS?: Yes Comments:: 09/29/16 02:49 CONSTITUTIONAL: Absent: fever, chills, diaphoresis, generalized weakness, malaise, loss of appetite HEENT: Absent: rhinorrhea, nasal congestion, throat pain, throat swelling, difficulty swallowing, mouth swelling, ear pain, eye pain, visual Changes CARDIOVASCULAR: Absent: chest pain, loss of consciousness, palpitations, irregular heart rate, peripheral edema RESPIRATORY: Absent: cough, shortness of breath, dyspnea with exertion, orthopnea, wheezing, stridor, hemoptysis GASTROINTESTINAL: "indigestion" Absent: abdominal pain, abdominal distension, nausea, vomiting, diarrhea, constipation, melena, hematochezia GENITOURINARY: Absent: dysuria, frequency, urgency, hesitancy, hematuria, flank pain, genital pain MUSCULOSKELETAL: Absent: myalgia, arthralgia, joint swelling SKIN: Absent: rash, itching, pallor HEMATOLOGIC/IMMUNOLOGIC: Absent: easy bleeding, easy bruising, lymphadenopathy, frequent infections ENDOCRINE: Absent: unexplained weight gain, unexplained weight loss, heat intolerance, cold intolerance NEUROLOGIC: Absent: headache, focal weakness or paresthesias, dizziness, unsteady gait, seizure, mental status changes, bladder or bowel incontinence PSYCHIATRIC: Absent: anxiety, depression, suicidal or homicidal ideation, hallucinations. *Physical Exam - Vital Signs Last Vital Signs Temp Pulse Resp BP Pulse Ox 97.1 F L 80 20 128/76 99 09/29/16 00:05 09/29/16 00:05 09/29/16 00:05 09/29/16 00:05 09/29/16 00:05 - Physical Exam Comments: 09/29/16 02:49 GENERAL: Well developed, well nourished. Awake and alert. No acute distress. HEENT: Normocephalic, atraumatic. PERRLA, EOMI. No conjunctival pallor. Sclera are non- icteric. Moist mucous membranes. Oropharynx is clear. NECK: Supple. Full ROM. No JVD. Carotid pulses 2+ and symmetric, without bruits. No thyromegaly. No lymphadenopathy. CARDIOVASCULAR: Regular rate and rhythm. No murmurs, rubs, or gallops. Distal pulses are 2+ and symmetric. PULMONARY: No evidence of respiratory distress. Lungs clear to auscultation bilaterally. No wheezing, rales or rhonchi. ABDOMINAL: Soft. Non-tender. Non-distended. No rebound or guarding. No organomegaly. Normoactive bowel sounds. MUSCULOSKELETAL Normal range of motion at all joints. No bony deformities or tenderness. No CVA tenderness. EXTREMITIES: No cyanosis. No clubbing. No edema. No calf tenderness. SKIN: Warm and dry. Normal capillary refill. No rashes. No jaundice. NEUROLOGICAL: Alert, awake, appropriate. Cranial nerves 2-12 intact. No deficits to light touch and temperature in face, upper extremities and lower extremities. No motor deficits in the in face, upper extremities and lower extremities. Normoreflexic in the upper and lower extremities. Normal speech. Toes are down- going bilaterally. Gait is normal without ataxia. PSYCHIATRIC: Cooperative. Good eye contact. Appropriate mood and affect. *DC/Admit/Observation/Transfer Diagnosis at time of Disposition: Indigestion - Discharge Dispostion Disposition: HOME Condition at time of disposition: Stable Admit: No - Referrals Referrals: Simon El MD [Staff Physician] - - Patient Instructions Printed Discharge Instructions: Indigestion Additional Instructions: Follow-up with your improvement nurse. Return back to the emergency department for severe/persistent or worsening symptoms
== END 2016-09-29 03:04 | disposition home or self-care (01) ==
LOC: JER 23:54
DX: R10.13 Epigastric pain (principal); K21.9 Gastro-esophageal reflux disease without esophagitis; F41.9 Anxiety disorder, unspecified
CPT/HCPCS: 99281-25

== ENCOUNTER 2016-10-01 21:47 | Emergency (ER) | payer OTHER ==
[2016-10-01 22:04] VITALS: BP 112/57; PULSE 110; TEMP 98.6; BMI 22.6
--- NOTE | 2016-10-01 22:36 | PDOC ---
History of Present Illness - General History Source: Patient, Old Records Exam Limitations: No Limitations - History of Present Illness Initial Comments: The patient is a 21 year old male with a significant past medical history of anxiety, GERD, and chronic abdominal discomfort, who presents to the emergency department today for further evaluation of nausea and vomiting 2 hours ago. The patient appears to be anxious. The patient reports one episode of vomiting and notes that he began to have a burning chest pain shortly after. The patient also reports left flank pain. He did not cite any exacerbating or alleviating factors. The patient has presented to this ED with similar symptoms recently and was cleared. This is the patient's fifth visit in the last two weeks. The patient denies fever, chills, and sweats. <Alexis Samuels - Last Filed: 10/01/16 22:50> <Greta Paige - Last Filed: 10/01/16 23:27> - General Chief Complaint: Shortness of Breath Stated Complaint: BACK PAIN/SOB Time Seen by Provider: 10/01/16 22:27 Past History <Alexis Samuels - Last Filed: 10/01/16 22:50> - Past Medical History GI Disorders: Yes (gerd) Psychiatric Problems: Yes (Anxiety) Suicide Attempt (Hx): No - Immunization History Immunization Up to Date: Yes (FLU [id number]) - Psycho/Social/Smoking Cessation Hx Anxiety: No Suicidal Ideation: No Smoking Status: No Smoking History: Never smoked Have you smoked in the past 12 months: No Number of Cigarettes Smoked Daily: 0 Cigars Per Day: 0 Hx Alcohol Use: No Drug/Substance Use Hx: No Substance Use Type: None Hx Substance Use Treatment: No <Greta Paige - Last Filed: 10/01/16 23:27> - Past Medical History Allergies/Adverse Reactions: Allergies Allergy/AdvReac Type Severity Reaction Status Date / Time No Known Allergies Allergy Verified 10/01/16 22:01 Home Medications: Ambulatory Orders NK [No Known Home Medication] 09/11/16 Respiratory Specific PMHX - Complaint Specific PMHX Bronchitis: No Pneumonia: No <Greta Paige - Last Filed: 10/01/16 23:27> Review of Systems - Review of Systems Able to Perform ROS?: Yes Comments:: CONSTITUTIONAL: Absent: fever, chills, diaphoresis, generalized weakness, malaise, loss of appetite HEENT: Absent: rhinorrhea, nasal congestion, throat pain, throat swelling, difficulty swallowing, mouth swelling, ear pain, eye pain, visual Changes CARDIOVASCULAR: Present: Chest pain Absent: syncope, palpitations, irregular heart rate, lightheadedness, peripheral edema RESPIRATORY: Absent: cough, shortness of breath, dyspnea with exertion, orthopnea, wheezing, stridor, hemoptysis GASTROINTESTINAL: Present: Nausea, Vomiting Absent: abdominal pain, abdominal distension, diarrhea, constipation, melena, hematochezia GENITOURINARY: Absent: dysuria, frequency, urgency, hesitancy, hematuria, flank pain, genital pain MUSCULOSKELETAL: Present: Flank pain Absent: arthralgia, joint swelling SKIN: Absent: rash, itching, pallor HEMATOLOGIC/IMMUNOLOGIC: Absent: easy bleeding, easy bruising, lymphadenopathy, frequent infections ENDOCRINE: Absent: unexplained weight gain, unexplained weight loss, heat intolerance, cold intolerance NEUROLOGIC: Absent: headache, focal weakness or paresthesias, dizziness, unsteady gait, seizure, mental status changes, bladder or bowel incontinence PSYCHIATRIC: Present: Anxiety Absent: depression, suicidal or homicidal ideation, hallucinations. <Alexis Samuels - Last Filed: 10/01/16 22:50> *Physical Exam - Vital Signs Last Vital Signs Temp Pulse Resp BP Pulse Ox 98.6 F 110 H 20 112/57 98 10/01/16 22:01 10/01/16 22:01 10/01/16 22:01 10/01/16 22:01 10/01/16 22:01 - Physical Exam Comments: GENERAL: Well developed, well nourished. Awake and alert. No acute distress. HEENT: Normocephalic, atraumatic. PERRLA, EOMI. No conjunctival pallor. Sclera are non- icteric. Moist mucous membranes. Oropharynx is clear. NECK: Supple. Full ROM. No JVD. Carotid pulses 2+ and symmetric, without bruits. No thyromegaly. No lymphadenopathy. CARDIOVASCULAR: Regular rate and rhythm. No murmurs, rubs, or gallops. Distal pulses are 2+ and symmetric. PULMONARY: No evidence of respiratory distress. Lungs clear to auscultation bilaterally. No wheezing, rales or rhonchi. ABDOMINAL: Soft. Non-tender. Non-distended. No rebound or guarding. No organomegaly. Normoactive bowel sounds. MUSCULOSKELETAL Normal range of motion at all joints. No bony deformities or tenderness. No CVA tenderness. EXTREMITIES: No cyanosis. No clubbing. No edema. No calf tenderness. SKIN: Warm and dry. Normal capillary refill. No rashes. No jaundice. NEUROLOGICAL: Alert, awake, appropriate. Cranial nerves 2-12 intact. No deficits to light touch and temperature in face, upper extremities and lower extremities. No motor deficits in the in face, upper extremities and lower extremities. Normoreflexic in the upper and lower extremities. Normal speech. Toes are down-going bilaterally. Gait is normal without ataxia. PSYCHIATRIC: Cooperative. Good eye contact. Appropriate mood and affect. <Alexis Samuels - Last Filed: 10/01/16 22:50> - Vital Signs Last Vital Signs Temp Pulse Resp BP Pulse Ox 98.6 F 110 H 20 112/57 98 10/01/16 22:01 10/01/16 22:01 10/01/16 22:01 10/01/16 22:01 10/01/16 22:01 <Greta Paige - Last Filed: 10/01/16 23:27> Medical Decision Making - Medical Decision Making 10/01/16 22:53 Normal sinus rhythm. Normal ECG. <Alexis Samuels - Last Filed: 10/01/16 22:50> *DC/Admit/Observation/Transfer - Attestations Scribe Attestion: Documentation prepared by Alexis Samuels, acting as manager medical device for Dr. Greta Paige MD. <Alexis Samuels - Last Filed: 10/01/16 22:50> <Greta Paige - Last Filed: 10/01/16 23:27> Diagnosis at time of Disposition: Abdominal wall pain in left flank, Shortness of breath Nausea and vomiting Qualifiers: Vomiting type: unspecified Vomiting Intractability: non-intractable Qualified Code(s): R11.2 - Nausea with vomiting, unspecified - Discharge Dispostion Disposition: HOME Condition at time of disposition: Stable - Patient Instructions Printed Discharge Instructions: DI for Atypical Chest Pain, DI for Low Back Pain Additional Instructions: Please follow up with your doctor and keep your October 05 appointment
[2016-10-01] MEDS ORDERED: MAG HYDROX/AL HYDROX/SIMETH 355 ML ORAL.SUSP PO ONE (23:07)
[2016-10-01] MEDS ORDERED: RANITIDINE HCL 150 MG TABLET (FP) PO ONE (23:07)
--- NOTE | 2016-10-02 17:10 | EKG ---
Test Reason : Blood Pressure : / mmHG Vent. Rate : 093 BPM Atrial Rate : 093 BPM P-R Int : 134 ms QRS Dur : 094 ms QT Int : 346 ms P-R-T Axes : 065 021 050 degrees QTc Int : 430 ms NORMAL SINUS RHYTHM NORMAL ECG WHEN COMPARED WITH ECG OF 13-SEP-2016 21:36, NO SIGNIFICANT CHANGE WAS FOUND Confirmed by SHOSHANA HYLTON MD ([id number]) on 10/02/2016 5:09:52 PM Referred By: Confirmed By:SHOSHANA HYLTON MD
== END 2016-10-01 23:44 | disposition home or self-care (01) ==
LOC: JER 21:47
DX: R10.32 Left lower quadrant pain (principal); F41.9 Anxiety disorder, unspecified; K21.9 Gastro-esophageal reflux disease without esophagitis
CPT/HCPCS: 93005; 93010; 99281-25

== ENCOUNTER 2016-10-16 06:41 | Emergency (ER) | payer OTHER ==
[2016-10-16 06:54] VITALS: TEMP 97.3; BMI 23.1
[2016-10-16] MEDS ORDERED: KETOROLAC TROMETHAMINE 60 MG/2 ML VIAL IM ONE (07:54)
[2016-10-16] MEDS ORDERED: diazePAM 5 MG TABLET PO ONE (07:54)
[2016-10-16] MEDS ORDERED: IBUPROFEN 600 MG TABLET (FP) PO ONE (07:55)
--- NOTE | 2016-10-16 08:06 | PDOC ---
History of Present Illness - General Chief Complaint: Back Pain Stated Complaint: PAIN Time Seen by Provider: 10/16/16 07:42 History Source: Patient Exam Limitations: No Limitations - History of Present Illness Initial Comments: 10/16/16 08:06 21 yr old male with c/o low back pain since awakening this morning. Pt states the pain is aching and does not radiate. Pt denies injury but states has had pain in this area before. Pt states also has had a uti but denies s/s presently. Pt denies weakness to BLE, rash, or skin discoloration. Pt denies saddle anesthesia and incontinence. Occurred: reports: this morning Severity: reports: mild Pain Location: reports: back Method of Injury: Yes: unknown Modifying Factors: improves with: None Associated Symptoms (Fall): denies symptoms Past History - Past Medical History Allergies/Adverse Reactions: Allergies Allergy/AdvReac Type Severity Reaction Status Date / Time No Known Allergies Allergy Verified 10/16/16 06:50 Home Medications: Ambulatory Orders NK [No Known Home Medication] 09/11/16 GI Disorders: Yes (gerd) Psychiatric Problems: Yes (Anxiety) Suicide Attempt (Hx): No - Immunization History Immunization Up to Date: Yes (FLU [id number]) - Psycho/Social/Smoking Cessation Hx Anxiety: No Suicidal Ideation: No Smoking Status: No Smoking History: Never smoked Have you smoked in the past 12 months: No Number of Cigarettes Smoked Daily: 0 Cigars Per Day: 0 Information on smoking cessation initiated: No Hx Alcohol Use: No Drug/Substance Use Hx: No Substance Use Type: None Hx Substance Use Treatment: No Patient Lives Alone: No Lives with/in: parents Trauma Specific PMHX - Complaint Specific PMHX Arthritis: No Back Injury: No Neck Injury: No Hx Sacro Iliac Joint Dysfunction: No Review of Systems - Review of Systems Able to Perform ROS?: Yes Constitutional: No: Symptoms Reported ABD/GI: No: Symptoms Reported Musculoskeletal: Yes: Back Pain. No: Muscle Weakness Integumentary: No: Symptoms Reported Neurological: No: Symptoms reported Endocrine: No: Symptoms Reported Hematologic/Lymphatic: No: Symptoms Reported *Physical Exam - Vital Signs Last Vital Signs Temp Pulse Resp BP Pulse Ox 97.3 F L 86 14 116/78 98 10/16/16 06:52 10/16/16 06:52 10/16/16 06:52 10/16/16 06:52 10/16/16 06:52 - Physical Exam General Appearance: Yes: Nourished, Appropriately Dressed. No: Apparent Distress Respiratory/Chest: positive: Lungs Clear, Normal Breath Sounds. negative: Respiratory Distress, Accessory Muscle Use Cardiovascular: positive: Regular Rhythm, Regular Rate. negative: Murmur Gastrointestinal/Abdominal: positive: Soft. negative: Tenderness Musculoskeletal: negative: CVA Tenderness, Vertebral Tenderness Extremity: positive: Normal Capillary Refill. negative: Pedal Edema Integumentary: positive: Normal Color, Warm, Moist Neurologic: positive: Motor Strength 5/5. negative: Normal Mood/Affect (anxious ) Medical Decision Making - Medical Decision Making 10/16/16 08:37 Pt with c/o LBP. Pt also c/o anxiety. Pt had no point tenderness. Pt recently treated for uti. Pt had no CVA tenderness. Pt ordered for motrin and ua. Lumbar MRI on 09/03/16 showed no acute findings. 10/16/16 09:09 Laboratory Tests 10/16/16 08:40 Urine Ketones Negative Urine Nitrite Negative Ur Leukocyte Esterase Negative Patient states feeling better after receiving Motrin. Patient will be discharged home and told to follow-up with his PCP *DC/Admit/Observation/Transfer Diagnosis at time of Disposition: Low back pain Qualifiers: Chronicity: unspecified Back pain laterality: midline Sciatica presence: without sciatica Qualified Code(s): M54.5 - Low back pain - Discharge Dispostion Disposition: HOME Condition at time of disposition: Good - Referrals Referrals: Naresh Blum MD [Primary Care Provider] - - Patient Instructions Printed Discharge Instructions: DI for Low Back Pain Additional Instructions: May take Motrin for discomfort and apply heat to the affected area as needed. Follow-up with your PCP as needed.
[2016-10-16 08:52] LABS: URINE APPEARANCE CLEAR; URINE BILIRUBIN NEGATIVE (NEGATIVE); URINE BLOOD NEGATIVE (NEGATIVE); URINE COLOR YELLOW; URINE GLUCOSE (UA) NEGATIVE (NEGATIVE); URINE KETONE NEGATIVE (NEGATIVE); URINE LEUK ESTERASE NEGATIVE (NEGATIVE); URINE NITRITE NEGATIVE (NEGATIVE); URINE PROTEIN NEGATIVE (NEGATIVE); URINE UROBILINOGEN NEGATIVE E.U./dl (0.2-1.0)
[2016-10-16 09:24] VITALS: BP 112/60; PULSE 79
== END 2016-10-16 09:25 | disposition home or self-care (01) ==
LOC: JER 06:41
DX: M54.5 Low back pain (principal); F41.9 Anxiety disorder, unspecified
CPT/HCPCS: 81003; 99282-25

== ENCOUNTER 2016-10-18 07:55 | Emergency (ER) | payer OTHER ==
[2016-10-18 08:05] VITALS: BP 110/69; PULSE 77; TEMP 98.7; BMI 22.6
--- NOTE | 2016-10-18 08:19 | PDOC ---
Attending Attestation - Resident Resident Name: Sean Augustine - ED Attending Attestation I have performed the following: I have examined & evaluated the patient, The case was reviewed & discussed with the resident, I agree w/resident's findings & plan, Exceptions are as noted - HPI HPI: 10/18/16 08:17 The patient is a 21-year-old male, status post recent cystoscopy (weeks ago), who presents to the emergency department complaining of low back pain. It is bilateral lower back. He has had these symptoms for several months. He was also seen for the same symptoms three days ago. He clearly states that the pain is lateral, not central. He also clearly states that it is worsened after increased physical activity. He denies abdominal pain, nausea, vomiting, diarrhea. He denies fever, chills, sweats. He denies urinary frequency/urgency/hesitancy/dysuria. He denies urethral discharge. He denies recent trauma or injury. He denies lower extremity weakness or paresthesias. He denies bladder or bowel incontinence or retention. He denies rash. 10/18/16 08:50 10/18/16 09:00 - Physicial Exam PE: 10/18/16 08:18 Vitals noted He is well appearing There is no midline vertebral body tenderness. Nontender rectal exam, performed by resident. 10/18/16 09:01 - Medical Decision Making 10/18/16 08:51 He is well appearing and in no acute distress UA from 10/16 noted WNL His clinical presentation is consistent with musculoskeletal back pain. There is no evidence of emergent pathology We have referred him to urology, ortho and his PCP for further evaluation Clinical impression: Chronic back pain I discussed the physical exam findings, ancillary test results and final diagnoses with the patient. I answered all of the patient's questions. The patient was satisfied with the care received and felt comfortable with the discharge plan and treatment plan. The patient will call their primary care physician within 24 hours to arrange follow-up and will return to the Emergency Department with any new, persistent or worsening symptoms. Discharge Disposition - Diagnosis Back pain - Discharge Dispostion Disposition: HOME Condition at time of disposition: Improved Last Admission D/C Date: 94 - Referrals Referrals: Baldemar Cavanaugh MD [Staff Physician] - Call tomorrow Vikas Jones MD [Staff Physician] - Call tomorrow Naresh Blum MD [Primary Care Provider] - Call tomorrow - Patient Instructions Printed Discharge Instructions: DI for Low Back Pain Additional Instructions: Return to the emergency department immediately with ANY new, persistent or worsening symptoms. You MUST call and follow up with your doctor tomorrow. Please make sure your doctor reviews the results of your emergency department evaluation. It is very important that you follow-up, not only with your primary care physician, but also with your urologist and with the orthopedic physician to whom we referred you. It is possible that this pain is not related to your bladder, and could be an orthopedic issue. Take ibuprofen 600 mg 3 times daily with food for one week. - Post Discharge Activity Work/School Note: Back to Work
--- NOTE | 2016-10-18 08:56 | PDOC ---
History of Present Illness - General Chief Complaint: Back Pain Stated Complaint: BACK PAIN Time Seen by Provider: 10/18/16 08:16 History Source: Patient Exam Limitations: No Limitations - History of Present Illness Initial Comments: 21 y/o M with no sig PMH comes to ER with back pain. Pt had cystoscopy [address] Jones and was found to have some inflammation in his bladder and sent home with levaquin. He states he has been having this back pain for 1 month and is described more as a pressure rather than a pain. He was in the ER here 2 days ago for same complaint and was discharged with motrin with no relief. He denies N/V/F/C, dysuria, pain with BMs, sick contacts, recent travel. Past History - Past Medical History Allergies/Adverse Reactions: Allergies Allergy/AdvReac Type Severity Reaction Status Date / Time No Known Allergies Allergy Verified 10/18/16 08:05 Home Medications: Ambulatory Orders NK [No Known Home Medication] 09/11/16 GI Disorders: Yes (gerd) Psychiatric Problems: Yes (Anxiety) Suicide Attempt (Hx): No - Immunization History Immunization Up to Date: Yes (FLU [id number]) - Psycho/Social/Smoking Cessation Hx Anxiety: No Suicidal Ideation: No Smoking Status: No Smoking History: Never smoked Have you smoked in the past 12 months: No Number of Cigarettes Smoked Daily: 0 Cigars Per Day: 0 Information on smoking cessation initiated: No Hx Alcohol Use: No Drug/Substance Use Hx: No Substance Use Type: None Hx Substance Use Treatment: No Review of Systems - Review of Systems Comments:: CONSTITUTIONAL: Absent: fever, no chills, no fatigue CARDIOVASCULAR: Absent: chest pain, no palpitations RESPIRATORY: Absent: cough, no SOB GI: Absent: abdominal pain, no nausea, no vomiting, no constipation, no diarrhea, no blood in stool GENITOURINARY: Absent: dysuria, no frequency, no hematuria MUSCULOSKELETAL: +back pressure/pain Absent:no arthralgia, no myalgia SKIN: Absent: rash *Physical Exam - Vital Signs Last Vital Signs Temp Pulse Resp BP Pulse Ox 98.7 F 77 18 110/69 99 10/18/16 07:57 10/18/16 07:57 10/18/16 07:57 10/18/16 07:57 10/18/16 07:57 - Physical Exam Comments: GENERAL: Well-appearing, well-nourished. No apparent distress. HEENT: Normocephalic, atraumatic. PERRL, EOM intact. CARDIOVASCULAR: Normal S1, S2. Regular rate and rhythm. PULMONARY: Clear to auscultation bilaterally. ABDOMEN: Soft, non-distended, non-tender. EXTREMITIES: Normal ROM in all four extremities. No gross deformities. MSK: No CVA tenderness, no spinal tenderness, no paraspinal muscle tenderness. RECTAL: No masses, no prostate tenderness, no masses on prostate. SKIN: Warm, dry. No rash NEUROLOGICAL: No focal neurological deficits. Medical Decision Making - Medical Decision Making 21 y/o M with no sig PMH comes to ER with back pain. Pt had cystoscopy [address] Jones and was found to have some inflammation in his bladder and sent home with levaquin. He states he has been having this back pain for 1 month and is described more as a pressure rather than a pain. He was in the ER here 2 days ago for same complaint and was discharged with motrin with no relief. He denies N/V/F/C, dysuria, pain with BMs, sick contacts, recent travel. 10/18/16 9:20 UA from last ER visit noted to be negative. Digital rectal exam with no prostate tenderness and no prostate masses noted. Will have pt take 600 mg ibuprofen TID with food and to f/u with ortho. *DC/Admit/Observation/Transfer Diagnosis at time of Disposition: Back pain - Discharge Dispostion Disposition: HOME Condition at time of disposition: Improved - Referrals Referrals: Naresh Blum MD [Primary Care Provider] - Call tomorrow Vikas Jones MD [Staff Physician] - Call tomorrow Baldemar Cavanaugh MD [Staff Physician] - Call tomorrow - Patient Instructions Printed Discharge Instructions: DI for Low Back Pain Additional Instructions: Return to the emergency department immediately with ANY new, persistent or worsening symptoms. You MUST call and follow up with your doctor tomorrow. Please make sure your doctor reviews the results of your emergency department evaluation. It is very important that you follow-up, not only with your primary care physician, but also with your urologist and with the orthopedic physician to whom we referred you. It is possible that this pain is not related to your bladder, and could be an orthopedic issue. Take ibuprofen 600 mg 3 times daily with food for one week. - Post Discharge Activity Work/School Note: Back to Work
== END 2016-10-18 09:03 | disposition home or self-care (01) ==
LOC: JER 07:55
DX: M54.89 Other dorsalgia (principal); K21.9 Gastro-esophageal reflux disease without esophagitis; F41.9 Anxiety disorder, unspecified
CPT/HCPCS: 99282-25

== ENCOUNTER 2017-04-28 02:24 | Emergency (ER) | payer OTHER ==
--- NOTE | 2017-04-28 02:55 | PDOC ---
History of Present Illness - General Stated Complaint: FLU-LIKE SYMPTOMS Time Seen by Provider: 04/28/17 02:28 History Source: Patient Exam Limitations: No Limitations - History of Present Illness Initial Comments: 04/28/17 02:51 22-year-old male with with a medical history significant for GERD presents to the emergency department complaining of subjective fever, nasal congestion, sore throat, nonproductive intermittent cough 3 days without headache, dizziness, lightheadedness, earaches, facial pains, rhinorrhea, difficulty swallowing, neck pain/stiffness, back pains, chest pain, shortness of breath, abdominal pains, urinary symptoms. Patient states he took Robitussin/1 dose with minimal relief. Timing/Duration: reports: other (x3d) Past History - Past Medical History Allergies/Adverse Reactions: Allergies Allergy/AdvReac Type Severity Reaction Status Date / Time No Known Allergies Allergy Verified 10/18/16 08:05 Home Medications: Ambulatory Orders NK [No Known Home Medication] 09/11/16 GI Disorders: Yes (gerd) Psychiatric Problems: Yes (Anxiety) - Immunization History Immunization Up to Date: Yes (FLU [id number]) - Suicide/Smoking/Psychosocial Hx Smoking Status: No Smoking History: Never smoked Have you smoked in the past 12 months: No Number of Cigarettes Smoked Daily: 0 Cigars Per Day: 0 Hx Alcohol Use: No Drug/Substance Use Hx: No Substance Use Type: None Hx Substance Use Treatment: No Respiratory Specific PMHX - Complaint Specific PMHX Bronchitis: No Pneumonia: No Review of Systems - Review of Systems Able to Perform ROS?: Yes Comments:: 04/28/17 02:52 CONSTITUTIONAL: Absent: fever, chills, diaphoresis, generalized weakness, malaise, loss of appetite HEENT: +nasal congestion/throat pain Absent: rhinorrhea, throat swelling, difficulty swallowing, mouth swelling, ear pain, eye pain, visual Changes CARDIOVASCULAR: Absent: chest pain, loss of consciousness, palpitations, irregular heart rate, peripheral edema RESPIRATORY: Absent: cough, shortness of breath, dyspnea with exertion, orthopnea, wheezing, stridor, hemoptysis GASTROINTESTINAL: Absent: abdominal pain, abdominal distension, nausea, vomiting, diarrhea, constipation, melena, hematochezia GENITOURINARY: Absent: dysuria, frequency, urgency, hesitancy, hematuria, flank pain, genital pain MUSCULOSKELETAL: Absent: myalgia, arthralgia, joint swelling SKIN: Absent: rash, itching, pallor HEMATOLOGIC/IMMUNOLOGIC: Absent: easy bleeding, easy bruising, lymphadenopathy, frequent infections ENDOCRINE: Absent: unexplained weight gain, unexplained weight loss, heat intolerance, cold intolerance Is the patient limited [place]ian proficient: No *Physical Exam - Physical Exam Comments: 04/28/17 02:52 GENERAL: Well developed, well nourished. Awake and alert. No acute distress. HEENT: Normocephalic, atraumatic. PERRLA, EOMI. No conjunctival pallor. Sclera are non- icteric. Moist mucous membranes. Oropharynx is clear. NECK: Supple. Full ROM. No JVD. Carotid pulses 2+ and symmetric, without bruits. No thyromegaly. No lymphadenopathy. CARDIOVASCULAR: Regular rate and rhythm. No murmurs, rubs, or gallops. Distal pulses are 2+ and symmetric. PULMONARY: No evidence of respiratory distress. Lungs clear to auscultation bilaterally. No wheezing, rales or rhonchi. ABDOMINAL: Soft. Non-tender. Non-distended. No rebound or guarding. No organomegaly. Normoactive bowel sounds. MUSCULOSKELETAL Normal range of motion at all joints. No bony deformities or tenderness. No CVA tenderness. EXTREMITIES: No cyanosis. No clubbing. No edema. No calf tenderness. SKIN: Warm and dry. Normal capillary refill. No rashes. No jaundice. NEUROLOGICAL: Alert, awake, appropriate. Cranial nerves 2-12 intact. No deficits to light touch and temperature in face, upper extremities and lower extremities. No motor deficits in the in face, upper extremities and lower extremities. Normoreflexic in the upper and lower extremities. Normal speech. Toes are down- going bilaterally. Gait is normal without ataxia. PSYCHIATRIC: Cooperative. Good eye contact. Appropriate mood and affect. ED Treatment Course - RADIOLOGY Radiology Studies Ordered: Category Date Time Status CHEST PA & LAT [RAD] Stat Radiology 04/28/17 02:48 Ordered Radiograph Interpretation: 04/28/17 02:53 Cxr: NAD *DC/Admit/Observation/Transfer Diagnosis at time of Disposition: Cough, Viral syndrome Pharyngitis Qualifiers: Pharyngitis/tonsillitis etiology: unspecified etiology Qualified Code(s): J02.9 - Acute pharyngitis, unspecified - Discharge Dispostion Condition at time of disposition: Stable Admit: No - Referrals Referrals: Naresh Blum MD [Primary Care Provider] - - Patient Instructions Printed Discharge Instructions: DI for Viral Syndrome, DI for Cough -- Adult, DI for Pharyngitis/Tonsillopharyngitis -- Adult Additional Instructions: Tylenol alternating with motrin as needed for fever Rest Increase fluids Return to the Er for severe/persistent/worsening symptoms - Post Discharge Activity
[2017-04-28 04:13] VITALS: BP 118/75; PULSE 103; TEMP 99.3; BMI 23.3
== END 2017-04-28 04:13 | disposition home or self-care (01) ==
LOC: JER 02:24
DX: B34.9 Viral infection, unspecified (principal); J02.9 Acute pharyngitis, unspecified; R05 Cough; K21.9 Gastro-esophageal reflux disease without esophagitis; F41.9 Anxiety disorder, unspecified
CPT/HCPCS: 71020-TC; 87070; 87430; 87804; 99281-25

== ENCOUNTER 2018-01-12 21:20 | Emergency (ER) | payer OTHER ==
[2018-01-12 21:27] VITALS: BP 132/77; PULSE 91; TEMP 99.3; BMI 25.0
--- NOTE | 2018-01-12 21:53 | PDOC ---
History of Present Illness - General Chief Complaint: Redness To Affected Area Stated Complaint: GENATAL PAIN - History of Present Illness Initial Comments: 22-year-old male without comorbidities presents for evaluation of one day of itchy rash on his penis and scrotum after using a new soap. He has no other associated symptoms. 01/12/18 21:51 Past History - Past Medical History Allergies/Adverse Reactions: Allergies Allergy/AdvReac Type Severity Reaction Status Date / Time No Known Allergies Allergy Verified 01/12/18 21:25 Home Medications: Ambulatory Orders NK [No Known Home Medication] 09/11/16 COPD: No GI Disorders: Yes (gerd) Psychiatric Problems: Yes (Anxiety) - Immunization History Immunization Up to Date: Yes (FLU [id number]) - Suicide/Smoking/Psychosocial Hx Smoking Status: No Smoking History: Never smoked Have you smoked in the past 12 months: No Number of Cigarettes Smoked Daily: 0 Cigars Per Day: 0 Hx Alcohol Use: No Drug/Substance Use Hx: No Substance Use Type: None Hx Substance Use Treatment: No Review of Systems - Review of Systems Integumentary: Yes: See HPI, Pruritus, Rash All Other Systems: Reviewed and Negative *Physical Exam - Vital Signs Last Vital Signs Temp Pulse Resp BP Pulse Ox 99.3 F 91 H 18 132/77 97 01/12/18 21:25 01/12/18 21:25 01/12/18 21:25 01/12/18 21:25 01/12/18 21:25 - Physical Exam Comments: External genitalia is normal there is a scaly rash on the undersurface of the scrotum and on the surface of the penis no surrounding erythema warmth induration or fluctuance 01/12/18 21:51 Medical Decision Making - Medical Decision Making His is a contact dermatitis I advised the patient to discontinue the causative agent and go back to the soap he was using prior follow-up with his primary care physician in one to 2 days for further evaluation and treatment options. 01/12/18 21:52 *DC/Admit/Observation/Transfer Diagnosis at time of Disposition: Contact dermatitis and eczema - Discharge Dispostion Disposition: HOME Condition at time of disposition: Stable - Referrals Referrals: Naresh Blum MD [Primary Care Provider] - - Patient Instructions Printed Discharge Instructions: Contact Dermatitis, DI for Contact Dermatitis Additional Instructions: Return to the emergency room should symptoms worsen or go unresolved. Follow-up with her primary care physician once 2 days for further evaluation and treatment options. Discontinue the use of the new soap that caused a rash. - Post Discharge Activity
== END 2018-01-12 21:55 | disposition home or self-care (01) ==
LOC: JERFT 21:20
DX: L23.89 Allergic contact dermatitis due to other agents (principal)
CPT/HCPCS: 99281-25

== ENCOUNTER 2018-03-10 17:25 | Emergency (ER) | payer OTHER ==
[2018-03-10 17:35] VITALS: BP 127/84; PULSE 76; BMI 24.2
--- NOTE | 2018-03-10 18:04 | PDOC ---
History of Present Illness - General Chief Complaint: Pain Stated Complaint: ARM PAIN Time Seen by Provider: 03/10/18 17:50 - History of Present Illness Initial Comments: 03/10/18 18:00 23-year-old male without comorbidities presents for evaluation of atraumatic onset of right elbow pain 2 days. Points to the lateral epicondyle as the area of his discomfort pain is exacerbated with activity and relieved with rest Past History - Past Medical History Allergies/Adverse Reactions: Allergies Allergy/AdvReac Type Severity Reaction Status Date / Time No Known Allergies Allergy Verified 03/10/18 17:32 Home Medications: Ambulatory Orders Ibuprofen [Motrin -] 600 mg PO TID #30 tablet 03/10/18 COPD: No GI Disorders: Yes (gerd) Psychiatric Problems: Yes (Anxiety) - Immunization History Immunization Up to Date: Yes (FLU [id number]) - Suicide/Smoking/Psychosocial Hx Smoking Status: No Smoking History: Never smoked Have you smoked in the past 12 months: No Number of Cigarettes Smoked Daily: 0 Cigars Per Day: 0 Hx Alcohol Use: No Drug/Substance Use Hx: No Substance Use Type: None Hx Substance Use Treatment: No Review of Systems - Review of Systems Musculoskeletal: Yes: See HPI, Joint Pain All Other Systems: Reviewed and Negative *Physical Exam - Vital Signs Last Vital Signs Temp Pulse Resp BP Pulse Ox 76 14 127/84 99 03/10/18 17:34 03/10/18 17:34 03/10/18 17:34 03/10/18 17:34 - Physical Exam Comments: 03/10/18 18:01 Right elbow skin color and temperature are normal range of motion is full and nonpainful in all planes. There is tenderness about the extensor wide, increased pain with resisted wrist extension. No evidence of instability or gross sensorimotor deficits. No other areas of tenderness. Negative Spurling maneuver 5 out of 5 strength bilateral upper extremities no gross sensorimotor deficits. Is neurovascular intact *DC/Admit/Observation/Transfer Diagnosis at time of Disposition: Lateral epicondylitis - Discharge Dispostion Disposition: HOME Condition at time of disposition: Stable Decision to Admit order: No - Referrals Referrals: Owen Daugherty MD [Staff Physician] - - Patient Instructions Printed Discharge Instructions: Lateral Epicondylitis, DI for Lateral Epicondylitis (Tennis Elbow) Additional Instructions: Leese take the anti-inflammatory 3 times a day with food as directed and discontinue the medication if about his stomach. Return to the emergency room should symptoms worsen or go unresolved and follow-up with orthopedic surgery as scheduled. - Post Discharge Activity
== END 2018-03-10 18:37 | disposition home or self-care (01) ==
LOC: JERFT 17:25
DX: M77.11 Lateral epicondylitis, right elbow (principal); K21.9 Gastro-esophageal reflux disease without esophagitis; F41.9 Anxiety disorder, unspecified
CPT/HCPCS: 99281-25